=== PATIENT | female | born 1930 | race Caucasian/White ===

== ENCOUNTER 2017-08-29 19:44 | Observation (INO) ==
--- NOTE | 2017-08-29 20:01 | Emergency Department Note ---
Disposition Clinical Impression: Recurrent falls Laceration of head Qualifiers: Encounter type: initial encounter Location of open wound of head: scalp Foreign body presence: without foreign body Qualified Code(s): S01.01XA - Laceration without foreign body of scalp, initial encounter Closed wedge fracture of thoracic vertebra Qualifiers: Encounter type: initial encounter Thoracic vertebra fracture level: T4 Qualified Code(s): S22.040A - Wedge compression fracture of fourth thoracic vertebra, initial encounter for closed fracture Disposition: Admitted As Inpatient Condition: Fair Instructions: Fall Prevention for Older Adults (ED) Reasons to Return/Additional Instructions: Please follow-up with your primary care provider for continuation of your care. Return to the emergency department if you develop any worsening of your condition or if you develop new concerning symptoms. Return to primary care provider in 5-7 days for removal of her sutures. Referrals: Rudy Crowder DO [Primary Care Provider] - Forms: ED Satisfaction Letter Fall HPI - General Chief Complaint: ED Fall Stated Complaint: Fall/head injury Time Seen by Provider: 08/29/17 19:53 Source: patient Nursing Notes Reviewed: Yes Vital Signs Reviewed: Yes - History of Present Illness HPI Narrative: 87-year-old female presents to emergency department after a fall. Patient was at home, states that she had a mechanical fall. Patient hit her head is going to the floor. In her right hand and right knee as well. Denies any neck pain. States that she denies any chest pain, pressure, tightness. Denies any shortness of breath. Denies losing consciousness. States she remembers everything happens. As walker and cane at home. Was using cane. - Related Data Home Medications Medication Instructions Recorded Confirmed Alendronate Sodium [Fosamax] 70 mg PO QWEEK 08/29/17 08/29/17 Celecoxib [Celebrex] 200 mg PO DAILY 08/29/17 08/29/17 Clopidogrel [Plavix] 75 mg PO DAILY 08/29/17 08/29/17 Esomeprazole Magnesium [Nexium] 40 mg PO DAILY 08/29/17 08/29/17 Lisinopril [Zestril] 40 mg PO DAILY 08/29/17 08/29/17 Metoclopramide HCl 5 mg PO BID 08/29/17 08/29/17 Metoprolol Succinate [Toprol Xl] 50 mg PO DAILY 08/29/17 08/29/17 Sertraline [Zoloft] 100 mg PO DAILY 08/29/17 08/29/17 Simvastatin [Zocor] 20 mg PO HS 08/29/17 08/29/17 Sucralfate [Carafate] 20 ml PO BID 08/29/17 08/29/17 Tolterodine LA (24 HR) [Detrol LA] 4 mg PO DAILY 08/29/17 08/29/17 amLODIPine [Norvasc] 5 mg PO DAILY 08/29/17 08/29/17 Allergies Allergy/AdvReac Type Severity Reaction Status Date / Time pregabalin [From Lyrica] AdvReac See Verified 08/29/17 20:42 Comments All systems ED: reviewed and negative except as stated. Review of Systems: As Per HPI Constitutional: Denies: fever Cardiovascular: Denies: chest pain Respiratory: Denies: cough, dyspnea, wheezes Gastrointestinal: Denies: abdominal pain, nausea, vomiting Genitourinary: Denies: urgency, dysuria, frequency Musculoskeletal: Denies: back pain, neck pain Integumentary: Reports: other (Laceration of forehead) Neurological: Reports: headache. Denies: weakness, numbness, paresthesias, confusion Endocrine: Denies: fatigue Hematological/Lymphatic: Denies: easy bleeding Fall PMH - Past Medical History Medical history: Reports: coronary artery disease, GERD, hypertension, myocardial infarction Surgical history: Reports: appendectomy, breast surgery, cataract, cholecystectomy, hysterectomy, orthopedic, other Psychiatric history: Reports: no psych history - Social History Smoking Status: Never smoker Alcohol use: Reports: none Drug use: Reports: none Physical Exam - General Limitations: no limitations General appearance: alert, in no apparent distress - Head Head exam: other (2 inch laceration of the scalp on the right side. Galea is disrupted. There are various skin tears on the right side of the cheek.) - Eye Eye exam: Present: PERRL, EOMI. Absent: scleral icterus - ENT ENT exam: normal exam, normal oropharynx, mucous membranes moist, TM's normal bilaterally - Neck Neck exam: Present: trachea midline - Chest Chest inspection: Present: normal inspection, symmetric chest wall rise - Respiratory Respiratory exam: Present: normal lung sounds bilaterally. Absent: respiratory distress, accessory muscle use - Cardiovascular Cardiovascular exam: Present: normal rhythm, bradycardia, normal heart sounds - Abdominal Exam Abdominal exam: Present: soft, Non-Tender. Absent: distention, guarding, rebound - Extremities Exam Extremities exam: Present: other (Bruising on the right knee, abrasion on the right hand.) - Back Exam Back exam: Present: full ROM - Neurological Exam Neurological exam: Present: alert, oriented X3, CN II-XII intact - Psychiatric Psychiatric exam: Present: normal affect, normal mood Course Vital Signs Temperature 98.5 F 08/29/17 19:48 Pulse Rate 57 08/29/17 19:48 Respiratory Rate 18 08/29/17 19:48 Blood Pressure 93/79 08/29/17 19:48 O2 Sat by Pulse Oximetry 96 08/29/17 19:48 Temperature 98.5 F 08/29/17 19:48 Pulse Rate 57 08/29/17 19:48 Respiratory Rate 18 08/29/17 19:48 Blood Pressure 93/79 08/29/17 19:48 O2 Sat by Pulse Oximetry 96 08/29/17 19:48 Oxygen Delivery Oxygen Delivery Room Air Procedures - Laceration Laceration 1 Site: scalp Side (If applicable): right Size (cm): 5 Description: linear Depth: involves muscle layer Local Anesthetic: lidocaine 1%, with epi Amount of Anesthesia Used (mL): 6 Pre-repair: wound explored, irrigated extensively Skin layer closed with: nylon Size: 6-0 Number of sutures/emperatriz: 10 Technique: simple, interrupted Subcutaneous layer closed with: vicryl Size: 6-0 Number of sutures: 2 Technique: simple, interrupted Fall - [facility] Narrative Medical decision making narrative: 87-year-old female presents to the emergency department after falling and hitting her head. Patient has obvious laceration on the right side of the scalp. Patient is GCS 15. Neurologically intact. We will obtain CT of the head, face, neck and chest. There were no acute findings. CT of the face reveals nasal fracture. Patient does not report any nasal pain, she states that this happened after a previous fall. CT and x-ray of the chest reveals dilated esophagus, but this is nothing new. Patient also has a closed wedge fracture of her thoracic spine of indeterminate age. Upon palpation of patient's spine, she had no tenderness. I do not think this is new as patient clinically does not have any back pain. Patient is not anemic. She does not have any evidence of leukocytosis. Kidney function is within normal limits. EKG did not reveal any evidence of for Parkinson White syndrome, Brugada syndrome, hypertrophic cardiomyopathy, QT prolongation, or any other arrhythmia. Patient had a laceration that was 5 cm in length on her scalp. This was repaired. The galea structure was not intact as well. This was repaired using 6-0 Vicryl. Patient tolerated the procedure well. She was given analgesia here in the emergency department as well. Patient does not have anyone at home to help her after her fall tonight. Patient was not able to get up with anybody to stay home with her. At this time , I think it is only safe to keep the patient in the hospital overnight for observation as she has been falling multiple times in the past few months. There may be some need for consideration of placement in extended care facility. I echoed this with the hospitalist as he accepted the admission of the patient. Patient agreed with plan. Hemodynamically stable at time of admission with the hospital. Chest CT 08/29/17 00:00 IMPRESSION: There is a moderate anterior wedge compression fracture of T6 of indeterminate age. Clinical correlation is recommended. No definite evidence of an acute injury in the chest or upper abdomen. There is an unchanged dilated esophagus with stable postsurgical changes at the GE junction, perhaps an unwound fundoplication as previously suggested. Achalasia is not excluded. Clinical correlation is recommended. D/ / Dave Luna MD / Dave Luna MD Interpreting Provider: Dave Luna MD Cervical Spine CT 08/29/17 20:01 IMPRESSION: No acute abnormality of the cervical spine. Multilevel degenerative changes There appears to be gaseous distention of the esophagus in the superior aspect of chest extending to the neck D/ / Yohan Eller MD / Yohan Eller MD Interpreting Provider: Yohan Eller MD Chest X-Ray 08/29/17 20:01 IMPRESSION: Dilated esophagus. Otherwise, no acute abnormalities seen in the chest D/ / Yohan Eller MD / Yohan Eller MD Interpreting Provider: Yohan Eller MD Head CT 08/29/17 20:01 IMPRESSION: No acute intracranial abnormality. Scalp laceration in the right frontal region. D/ / Dave Luna MD / Dave Luna MD Interpreting Provider: Dave Luna MD Pelvis X-Ray 08/29/17 20:01 IMPRESSION: No acute osseous abnormality. D/ / 08/29/2017 21:57:14 Carson Dimas MD / marisol Interpreting Provider: Carson Dimas MD Hand X-Ray 08/29/17 20:02 IMPRESSION: No acute bony or joint abnormality. Severe osteoarthritic change D/ / Yohan Eller MD / Yohan Eller MD Interpreting Provider: Yohan Eller MD Knee X-Ray 08/29/17 20:03 IMPRESSION: 1. No acute osseous abnormality of the right knee. 2. Mild tricompartmental osteoarthritis. 3. 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 D/ / 08/29/2017 21:49:21 Carson Dimas MD / marisol Interpreting Provider: Carson Dimas MD Face CT 08/29/17 20:11 IMPRESSION: Nasal bone deformity/fracture of indeterminate age. Clinical correlation is recommended. No other facial bone fracture identified. Right frontal scalp laceration. D/ / Dave Luna MD / Dave Luna MD Interpreting Provider: Dave Luna MD Vital Signs Temperature 98.5 F 08/29/17 19:48 Pulse Rate 57 08/29/17 19:48 Respiratory Rate 18 08/29/17 19:48 Blood Pressure 93/79 08/29/17 19:48 O2 Sat by Pulse Oximetry 96 08/29/17 19:48 Temperature 98.5 F 08/29/17 19:48 Pulse Rate 57 08/29/17 19:48 Respiratory Rate 18 08/29/17 19:48 Blood Pressure 93/79 08/29/17 19:48 O2 Sat by Pulse Oximetry 96 08/29/17 19:48 Oxygen Delivery Oxygen Delivery Room Air - Lab Data Result diagrams: 08/29/17 20:05 08/29/17 20:05 Lab Results 08/29/17 08/29/17 Range/Units 20:05 20:05 WBC 11.1 (4.3-11.1) K/mcL RBC 4.12 (3.82-4.97) M/mcL Hgb 11.6 (11.5-15.4) g/dL Hct 36.0 (35.3-44.9) % MCV 87.4 (83.0-100.0) fL MCH 28.2 (28.0-33.3) pg MCHC 32.2 (31.6-35.5) g/dL RDW 14.3 (11.5-14.5) % Plt Count 94 L (140-400) K/mcL MPV 12.1 (9.4-12.4) fL Immature Gran % 0.4 (0-4) % Seg Neutrophils % 87.9 % Lymphocytes % 7.7 % Monocytes % 2.0 % Eosinophils % 1.8 % Basophils % 0.2 % Neutrophils # 9.8 H (1.6-8.9) K/mcL Lymphocytes # 0.9 (0.6-4.6) K/mcL Monocytes # 0.2 (0.0-1.3) K/mcL Eosinophils # 0.2 (0.0-0.6) K/mcL Basophils # 0.0 (0.0-0.2) K/mcL Platelet Estimate Decreased L (Normal) Poikilocytosis 1+ A (Not Present) Sodium 135 L (136-145) mEq/L Potassium 4.2 (3.5-5.1) mEq/L Chloride 107 (98-107) mEq/L Carbon Dioxide 19 L (23-29) mEq/L BUN 30 H (8-23) mg/dL Creatinine 1.16 (0.60-1.20) mg/dL Est GFR ( Amer) 53 L (> 60) Est GFR (Non-Af Amer) 44 L (> 60) BUN/Creatinine Ratio 26 (6-26) Glucose 113 H (70-105) mg/dL Calculated Osmolality 287 (280-300) Calcium 9.0 (8.6-10.3) mg/dL Troponin I < 0.03 (< 0.04) ng/mL TSH 6.987 H (0.340-5.600) mcIU/mL - Radiology Data Radiology results reviewed: Yes I reviewed the patient's radiology results. - EKG Data EKG attestation: Yes I reviewed and interpreted this EKG. EKG results narrative: 19:55 Ventricular rate 52 bpm, SD interval 205, QS spiritism 77 ms, QT 430 ms, QTC 413 ms, attacks deviation. Sinus bradycardia with a ventricular rate of 52 bpm. There are no ischemic ST changes noted on this electrocardiogram. No previous study to compare this to. No evidence of Lxzri-Opmzgqnwg-Ijuov syndrome, hypertrophic cardiomyopathy, QT prolongation.
[2017-08-29 20:29] LABS: Basophils % 0.2 %; Eosinophils # 0.2 K/mcL (0.0-0.6); Eosinophils % 1.8 %; Hemoglobin 11.6 g/dL (11.5-15.4); Immature Granulocytes % 0.4 % (0-4); Lymphocytes # 0.9 K/mcL (0.6-4.6); Lymphocytes % 7.7 %; Mean Corpuscular HGB Conc 32.2 g/dL (31.6-35.5); Mean Corpuscular Hemoglobin 28.2 pg (28.0-33.3); Mean Corpuscular Volume 87.4 fL (83.0-100.0); Mean Platelet Volume 12.1 fL (9.4-12.4); Monocytes # 0.2 K/mcL (0.0-1.3); Neutrophils # 9.8 K/mcL (1.6-8.9); Red Blood Count 4.12 M/mcL (3.82-4.97); Red Cell Distribution Width 14.3 % (11.5-14.5); Segmented Neutrophils % 87.9 %
[2017-08-29 20:31] LABS: Platelet Count 94 K/mcL (140-400)
[2017-08-29 20:44] LABS: BUN/Creatinine Ratio 26 (6-26); Blood Urea Nitrogen 30 mg/dL (8-23); Carbon Dioxide 19 mEq/L (23-29); Chloride 107 mEq/L (98-107); Glucose 113 mg/dL (70-105); Osmolality,Calculated 287 (280-300); Potassium 4.2 mEq/L (3.5-5.1); Sodium 135 mEq/L (136-145); eGFR For African Americans 53 (> 60); eGFR For Non-African Americans 44 (> 60)
[2017-08-29 20:45] LABS: Troponin I < 0.03 ng/mL (< 0.04)
[2017-08-29 20:49] LABS: Platelet Estimate Decreased (Normal); Poikilocytosis 1+ (Not Present)
[2017-08-29 20:58] LABS: Thyroid Stimulating Hormone 6.987 mcIU/mL (0.340-5.600)
[2017-08-29] MEDS ORDERED: Lidocaine 1% 20 ML MDV ID ONE (21:54)
[2017-08-29] MEDS ORDERED: *HR* FentaNYL (PF) 100 MCG/2 ML VIAL IVP ONE (22:06)
--- NOTE | 2017-08-29 22:49 | Emergency Department Note ---
Disposition Clinical Impression: Recurrent falls Laceration of head Qualifiers: Encounter type: initial encounter Location of open wound of head: scalp Foreign body presence: without foreign body Qualified Code(s): S01.01XA - Laceration without foreign body of scalp, initial encounter Closed wedge fracture of thoracic vertebra Qualifiers: Encounter type: initial encounter Thoracic vertebra fracture level: T4 Qualified Code(s): S22.040A - Wedge compression fracture of fourth thoracic vertebra, initial encounter for closed fracture Disposition: Admitted As Inpatient Condition: Fair Instructions: Fall Prevention for Older Adults (ED) Reasons to Return/Additional Instructions: Please follow-up with your primary care provider for continuation of your care. Return to the emergency department if you develop any worsening of your condition or if you develop new concerning symptoms. Return to primary care provider in 5-7 days for removal of her sutures. Referrals: Rudy Crowder DO [Primary Care Provider] - Forms: ED Satisfaction Letter Time of Disposition: 22:50 Fall HPI - General Chief Complaint: ED Fall Stated Complaint: Fall/head injury Time Seen by Provider: 08/29/17 19:53 Source: patient Mode of arrival: ambulatory Limitations: no limitations Nursing Notes Reviewed: Yes Vital Signs Reviewed: Yes - Related Data Home Medications Medication Instructions Recorded Confirmed Alendronate Sodium [Fosamax] 70 mg PO QWEEK 08/29/17 08/29/17 Celecoxib [Celebrex] 200 mg PO DAILY 08/29/17 08/29/17 Clopidogrel [Plavix] 75 mg PO DAILY 08/29/17 08/29/17 Esomeprazole Magnesium [Nexium] 40 mg PO DAILY 08/29/17 08/29/17 Lisinopril [Zestril] 40 mg PO DAILY 08/29/17 08/29/17 Metoclopramide HCl 5 mg PO BID 08/29/17 08/29/17 Metoprolol Succinate [Toprol Xl] 50 mg PO DAILY 08/29/17 08/29/17 Sertraline [Zoloft] 100 mg PO DAILY 08/29/17 08/29/17 Simvastatin [Zocor] 20 mg PO HS 08/29/17 08/29/17 Sucralfate [Carafate] 20 ml PO BID 08/29/17 08/29/17 Tolterodine LA (24 HR) [Detrol LA] 4 mg PO DAILY 08/29/17 08/29/17 amLODIPine [Norvasc] 5 mg PO DAILY 08/29/17 08/29/17 Allergies Allergy/AdvReac Type Severity Reaction Status Date / Time pregabalin [From Lyrica] AdvReac See Verified 08/29/17 20:42 Comments Fall PMH - Past Medical History Medical history: Reports: coronary artery disease, GERD, hypertension, myocardial infarction Surgical history: Reports: appendectomy, breast surgery, cataract, cholecystectomy, hysterectomy, orthopedic, other Psychiatric history: Reports: no psych history - Social History Smoking Status: Never smoker Alcohol use: Reports: none Drug use: Reports: none Physical Exam - General Limitations: no limitations General appearance: alert, in no apparent distress Course Vital Signs Temperature 98.5 F 08/29/17 19:48 Pulse Rate 57 08/29/17 19:48 Respiratory Rate 18 08/29/17 19:48 Blood Pressure 93/79 08/29/17 19:48 O2 Sat by Pulse Oximetry 96 08/29/17 19:48 Temperature 98.5 F 08/29/17 19:48 Pulse Rate 57 08/29/17 19:48 Respiratory Rate 18 08/29/17 19:48 Blood Pressure 93/79 08/29/17 19:48 O2 Sat by Pulse Oximetry 96 08/29/17 19:48 Oxygen Delivery Oxygen Delivery Room Air Fall - Lab Data Result diagrams: 08/29/17 20:05 08/29/17 20:05 Lab Results 08/29/17 08/29/17 Range/Units 20:05 20:05 WBC 11.1 (4.3-11.1) K/mcL RBC 4.12 (3.82-4.97) M/mcL Hgb 11.6 (11.5-15.4) g/dL Hct 36.0 (35.3-44.9) % MCV 87.4 (83.0-100.0) fL MCH 28.2 (28.0-33.3) pg MCHC 32.2 (31.6-35.5) g/dL RDW 14.3 (11.5-14.5) % Plt Count 94 L (140-400) K/mcL MPV 12.1 (9.4-12.4) fL Immature Gran % 0.4 (0-4) % Seg Neutrophils % 87.9 % Lymphocytes % 7.7 % Monocytes % 2.0 % Eosinophils % 1.8 % Basophils % 0.2 % Neutrophils # 9.8 H (1.6-8.9) K/mcL Lymphocytes # 0.9 (0.6-4.6) K/mcL Monocytes # 0.2 (0.0-1.3) K/mcL Eosinophils # 0.2 (0.0-0.6) K/mcL Basophils # 0.0 (0.0-0.2) K/mcL Platelet Estimate Decreased L (Normal) Poikilocytosis 1+ A (Not Present) Sodium 135 L (136-145) mEq/L Potassium 4.2 (3.5-5.1) mEq/L Chloride 107 (98-107) mEq/L Carbon Dioxide 19 L (23-29) mEq/L BUN 30 H (8-23) mg/dL Creatinine 1.16 (0.60-1.20) mg/dL Est GFR ( Amer) 53 L (> 60) Est GFR (Non-Af Amer) 44 L (> 60) BUN/Creatinine Ratio 26 (6-26) Glucose 113 H (70-105) mg/dL Calculated Osmolality 287 (280-300) Calcium 9.0 (8.6-10.3) mg/dL Troponin I < 0.03 (< 0.04) ng/mL TSH 6.987 H (0.340-5.600) mcIU/mL Attestation Statement - Attestation Attestation: I, Khadar Fairbanks, examined this patient and my medical decision-making was reviewed with the ELECTRONIC SECURITY SPECIALIST/PA/Advanced Practice Nurse/Resident Physician. I agree with the documented findings, disposition and treatment plan as described except to the extent set forth below. 87-year-old female presents emergency Department with concerns of fall with head injury. Patient has laceration to the right forehead and right face. Patient states she was walking with her cane when she is supposed be using her walker. She lost her balance and started falling to the ground. She denies loss of consciousness to me. She states she has a long history of similar falls in the past. She denies fever, chills, nausea, vomiting, chest pain, shortness of breath, abdominal pain. No other recent changes in medications. Patient denies significant pain in her neck. CT of the head and neck were negative for acute acute intracranial hemorrhage, there is no fractures other than an indeterminate age nasal bone fracture. CT of the chest showed an indeterminate age wedge fracture of T6. Patient does not have back pain at that site. It also showed a dilated distal esophagus, patient denies difficulty with swallowing. Patient was updated on her CT results. Laceration was repaired by the resident with my supervision. Patient has a history of multiple recent falls. We will unable to obtain somebody to stay with the patient tonight to help her get around the house. Patient lives alone. Patient feels that she could fall if she was sent home. Patient will be admitted for possible placement to the detention and for further care and evaluation.
[2017-08-30 00:36] LABS: Bilirubin,Urine Small (Negative); Blood,Urine Moderate (Negative); Clarity,Urine Turbid (Clear); Color,Urine Yellow (Yellow); Glucose,Urine (UA) Normal (Normal); Ketones,Urine Negative (Negative); Leukocyte Esterase,Urine Large (Negative); Nitrite,Urine Negative (Negative); Protein,Urine Negative (Neg-Trace); Specific Gravity,Urine 1.023 (1.010-1.025); Urobilinogen,Urine Normal (Normal)
[2017-08-30 00:39] LABS: Bacteria,Urine Few per hpf (None-Few); Squamous Epithelial Cell,Urine Many per lpf (None-Few); WBC,Urine 30-50 per hpf (0-3)
[2017-08-30 00:55] LABS: Hyaline Casts,Urine Many per lpf (None-Few)
--- NOTE | 2017-08-30 02:22 | Internal Med History&Physical ---
Date of Encounter: 08/30/17 Time of Encounter: 01:40 Internal Medicine - H&P: HPI Chief complaint: FAll of with head injury Admitted From: Emergency Dept Plans for Post Hospital Care: Transfer Residential Facility History of present illness: Ms. Nunez is a 87 year old female patient with a history of coronary artery disease status post stent, hypertension, gastroesophageal reflux disease who presented to the ER after fall with resulting head injury. She has been having multiple episodes of falls at home related to episodes of vertigo. She does not take anything for this. She had been feeling weak this morning but appears to have a mechanical fall with head injury when she landed on the floor. She also hit her right knee and hand as well. She normally uses a walker and cane at home. She lives alone. She did not lose any consciousness. She occasionally gets dizzy but denies any palpitations. No focal weakness or numbness. Past Med Surg Social Fam HX - Past Medical History Medical history: coronary artery disease, GERD, hypertension, myocardial infarction Additional medical history: hiatel hernia - acute esophagitis Psychiatric history: no psych history - Past Surgical History Surgical History: appendectomy, breast surgery, cataract, cholecystectomy, hysterectomy, orthopedic, other Additional surgical history: heart stent - egd - ctr x 3, cole hand surgery, nose surgery, esophageal surgery - Social History Smoking Status: Never smoker Smokeless Tobacco Status: No Alcohol use: none Drug use: none - Additional Family History Additional family history: Family history reviewed and found to be noncontributory at this time. Internal Medicine - H&P: Meds Alendronate Sodium [Fosamax] 70 mg PO QWEEK 08/29/17 [History] Celecoxib [Celebrex] 200 mg PO DAILY 08/29/17 [History] Clopidogrel [Plavix] 75 mg PO DAILY 08/29/17 [History] Esomeprazole Magnesium [Nexium] 40 mg PO DAILY 08/29/17 [History] Lisinopril [Zestril] 40 mg PO DAILY 08/29/17 [History] Metoclopramide HCl 5 mg PO BID 08/29/17 [History] Metoprolol Succinate [Toprol Xl] 50 mg PO DAILY 08/29/17 [History] Sertraline [Zoloft] 100 mg PO DAILY 08/29/17 [History] Simvastatin [Zocor] 20 mg PO HS 08/29/17 [History] Sucralfate [Carafate] 20 ml PO BID 08/29/17 [History] Tolterodine LA (24 HR) [Detrol LA] 4 mg PO DAILY 08/29/17 [History] amLODIPine [Norvasc] 5 mg PO DAILY 08/29/17 [History] 3 Allergy/AdvReac Type Severity Reaction Status Date / Time pregabalin [From Lyrica] AdvReac See Verified 08/29/17 20:42 Comments All Systems PM: A 10-system review of systems was performed and is negative for pertinent findings except as documented above in the HPI. - Constitutional Constitutional: falls, no chills, no fever(s), no night sweats - EENT Eyes: no change in vision, no discharge, no pain, no photophobia Ears: no ear discharge, no ear pain, no tinnitus Nose, mouth and throat: no dysphagia, no nasal discharge, no neck pain, no sore throat - Cardiovascular Cardiovascular ROS IM: no chest pain, no diaphoresis, no dyspnea, no lightheadedness, no palpitations, no syncope - Respiratory Respiratory: no cough, no dyspnea, no wheezing, no excessive phlegm production - Gastrointestinal Gastrointestinal: no abdominal pain, no diarrhea, no hematemesis, no hematochezia, no melena, no nausea, no vomiting - Genitourinary Genitourinary: no change in urinary stream, no dysuria, no flank pain, no hematuria - Musculoskeletal Musculoskeletal ROS IM: no numbness, no tingling - Integumentary Integumentary IM: no rash, no unusual bruising - Neurological Neurological ROS: frequent falls, no confusion, no convulsions, no focal weakness, no numbness, no tingling, no tremor(s) - Hematologic/Lymphatic Hematologic/Lymphatic: no easy bruising - Constitutional Vitals: Temp Pulse Resp BP Pulse Ox 98.3 F 55 16 104/60 95 08/30/17 02:06 08/30/17 02:06 08/30/17 02:06 08/30/17 02:06 08/30/17 02:06 General appearance: Present: cooperative, A&O X 3, answers questions appropriately - Head Additional comments: Sutures placed on right frontal scalp region wound - Respiratory Respiratory exam: Present: CTAB. Absent: accessory muscle use, rales, rhonchi, wheezes - Cardiovascular Cardiovascular exam: Present: RRR, +S1, +S2. Absent: diastolic murmur, gallop, rubs, systolic murmur - GI/Abdominal GI/Abdominal exam: Present: normal bowel sounds, soft, no peritoneal signs. Absent: distended, tenderness - Extremities Exam Extremities exam: Present: warm, radial pulses palpable and symmetrical. Absent : calf tenderness, cyanotic, pedal edema - Neurological Exam Neurological exam: Present: CN II-XII intact, oriented X3, no focal deficits. Absent: facial droop, speech deficit - Skin Skin exam: Present: dry, intact Additional comments: Multiple ecchymoses noted on her face, extremities Internal Med - H&P Results - Labs CBC & Chem 7: 08/29/17 20:05 08/29/17 20:05 - Impressions Impressions Chest CT 08/29/17 00:00 IMPRESSION: There is a moderate anterior wedge compression fracture of T6 of indeterminate age. Clinical correlation is recommended. No definite evidence of an acute injury in the chest or upper abdomen. There is an unchanged dilated esophagus with stable postsurgical changes at the GE junction, perhaps an unwound fundoplication as previously suggested. Achalasia is not excluded. Clinical correlation is recommended. D/ / Dave Luna MD / Dave Luna MD Interpreting Provider: Dave Luna MD Cervical Spine CT 08/29/17 20:01 IMPRESSION: No acute abnormality of the cervical spine. Multilevel degenerative changes There appears to be gaseous distention of the esophagus in the superior aspect of chest extending to the neck D/ / Yohan Eller MD / Yohan Eller MD Interpreting Provider: Yohan Eller MD Chest X-Ray 08/29/17 20:01 IMPRESSION: Dilated esophagus. Otherwise, no acute abnormalities seen in the chest D/ / Yohan Eller MD / Yohan Eller MD Interpreting Provider: Yohan Eller MD Head CT 08/29/17 20:01 IMPRESSION: No acute intracranial abnormality. Scalp laceration in the right frontal region. D/ / Dave Luna MD / Dave Luna MD Interpreting Provider: Dave Luna MD Pelvis X-Ray 08/29/17 20:01 IMPRESSION: No acute osseous abnormality. D/ / 08/29/2017 21:57:14 Carson Dimas MD / marisol Interpreting Provider: Carson Dimas MD Hand X-Ray 08/29/17 20:02 IMPRESSION: No acute bony or joint abnormality. Severe osteoarthritic change D/ / Yohan Eller MD / Yohan Eller MD Interpreting Provider: Yohan Eller MD Knee X-Ray 08/29/17 20:03 IMPRESSION: 1. No acute osseous abnormality of the right knee. 2. Mild tricompartmental osteoarthritis. 3. 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 D/ / 08/29/2017 21:49:21 Carson Dimas MD / marisol Interpreting Provider: Carson Dimas MD Face CT 08/29/17 20:11 IMPRESSION: Nasal bone deformity/fracture of indeterminate age. Clinical correlation is recommended. No other facial bone fracture identified. Right frontal scalp laceration. D/ / Dave Luna MD / Dave Luna MD Interpreting Provider: Dave Luna MD - Assessment and plan (1) Recurrent falls Current Visit: Yes Status: Acute Assessment and plan: Patient with recurrent falls. No clear acute fractures. She does have moderate anterior wedge compression fracture of T6 of indeterminate age and also a nasal bone fracture of indeterminate age. Patient lives alone. As such she is unsafe to be discharged home at this time. Therefore we will bring her in for observation and oncology social work, PT OT evaluation. Fall precautions. Check orthostatic blood pressures. Gentle IV hydration. (2) Laceration of head Current Visit: Yes Status: Acute Assessment and plan: Due to fall. Has been sutured in the ER. Continue local wound care Qualifiers: Encounter type: initial encounter Location of open wound of head: scalp Foreign body presence: without foreign body Qualified Code(s): S01.01XA - Laceration without foreign body of scalp, initial encounter (3) Coronary artery disease Current Visit: Yes Status: Chronic Assessment and plan: Patient takes Plavix at home. CT scan of the head does not show any acute bleed. Will continue Plavix for now. Qualifiers: Coronary Disease-Associated Artery/Lesion type: [place] artery [place] vs. transplanted heart: [place] heart Associated angina: without angina Qualified Code(s): I25.10 - Atherosclerotic heart disease of [place] coronary artery without angina pectoris (4) Essential hypertension Current Visit: Yes Status: Chronic Assessment and plan: monitor blood pressure. Hold antihypertensives currently because blood pressure appears to be on the lower side and patient may have orthostatic hypotension. We will reevaluate in the morning. - Time Spent With Patient Total time spent is greater than 50% in coordination of care (as documented) at patient's floor/unit and/or counseling patient:
[2017-08-30] MEDS ORDERED: Naloxone 0.4 MG/ML INJ IVP PRN (02:27)
[2017-08-30] MEDS ORDERED: Ringers Solution, Lactated 1,000 ML IVC SCH ×2 (02:30→03:00)
[2017-08-30 05:03] LABS: Basophils % 0.3 %; Hemoglobin 10.8 g/dL (11.5-15.4)
[2017-08-30 05:05] LABS: Eosinophils # 0.2 K/mcL (0.0-0.6); Eosinophils % 2.6 %; Hematocrit 32.5 % (35.3-44.9); Immature Granulocytes % 0.6 % (0-4); Immature Platelets 8.6 % (1.1-6.1); Lymphocytes # 1.5 K/mcL (0.6-4.6); Lymphocytes % 21.2 %; Mean Corpuscular HGB Conc 33.2 g/dL (31.6-35.5); Mean Corpuscular Hemoglobin 29.7 pg (28.0-33.3); Mean Corpuscular Volume 89.3 fL (83.0-100.0); Mean Platelet Volume 12.6 fL (9.4-12.4); Monocytes # 0.6 K/mcL (0.0-1.3); Monocytes % 8.2 %; Neutrophils # 4.8 K/mcL (1.6-8.9); Nucleated Red Blood Cells 0.3 /100 WBC (0); Platelet Count 71 K/mcL (140-400); Red Blood Count 3.64 M/mcL (3.82-4.97); Red Cell Distribution Width 14.2 % (11.5-14.5); Segmented Neutrophils % 67.1 %
[2017-08-30 05:27] LABS: Calcium 9.1 mg/dL (8.6-10.3); Potassium 4.2 mEq/L (3.5-5.1)
[2017-08-30] MEDS: Celecoxib 200 MG CAPSULE PO SCH (09:16)
[2017-08-30] MEDS: Tolterodine LA (24 HR) 4 MG CAP.ER.24H PO SCH (09:18)
--- NOTE | 2017-08-30 12:38 | Event Note ---
Date of Encounter: 08/30/17 Time of Encounter: 12:35 Patient was seen and examined earlier this a.m. by hospitalist. I did see the patient at bedside she is alert and appropriate and following simple commands. She does admit to frequent falls and lives alone. She does use a cane or walker and admits that majority of her falls occur when she is using her cane she feels unsteady and attributes this recent fall to tripping on her feet. Awaiting PT OT and social service recommendations. We will recheck lab work in the a.m. Continue with fall precautions
--- NOTE | 2017-08-30 20:53 | Electrocardiograph Report ---
[address] [place], [place] [address] Test Date: 2017-08-29 Pat Name: Brittany Nunez Department: 103 Room: 3B21 Gender: F Bench Inspector: LRS : 1930 Requested By: Justo Ariza Order Number: [id number] Reading MD: Heron Shelton Measurements Intervals [place] Rate: 53 P: 20 AL: 205 QRS: -2 QRSD: 77 T: 43 QT: 430 QTc: 413 Interpretive Statements SINUS BRADYCARDIA BASELINE ARTIFACT Electronically Signed On 08-30-2017 20:51:47 EDT by Heron Shelton
[2017-08-31 07:25] LABS: Basophils % 0.2 %; Hemoglobin 10.9 g/dL (11.5-15.4)
[2017-08-31 07:27] LABS: Eosinophils # 0.1 K/mcL (0.0-0.6); Eosinophils % 2.9 %; Immature Granulocytes % 0.6 % (0-4); Immature Platelets 7.9 % (1.1-6.1); Lymphocytes % 21.1 %; Mean Corpuscular Hemoglobin 29.2 pg (28.0-33.3); Mean Corpuscular Volume 88.5 fL (83.0-100.0); Mean Platelet Volume 12.1 fL (9.4-12.4); Monocytes # 0.4 K/mcL (0.0-1.3); Monocytes % 7.6 %; Neutrophils # 3.3 K/mcL (1.6-8.9); Red Blood Count 3.73 M/mcL (3.82-4.97); Red Cell Distribution Width 14.2 % (11.5-14.5); Segmented Neutrophils % 67.6 %
[2017-08-31 07:42] LABS: BUN/Creatinine Ratio 20 (6-26); Blood Urea Nitrogen 16 mg/dL (8-23); Calcium 9.2 mg/dL (8.6-10.3); Carbon Dioxide 23 mEq/L (23-29); Chloride 112 mEq/L (98-107); Glucose 89 mg/dL (70-105); Osmolality,Calculated 295 (280-300); Potassium 3.6 mEq/L (3.5-5.1); Sodium 142 mEq/L (136-145); eGFR For African Americans > 60 (> 60); eGFR For Non-African Americans > 60 (> 60)
[2017-08-31 08:11] LABS: Platelet Count 79 K/mcL (140-400)
[2017-08-31] MEDS: Celecoxib 200 MG CAPSULE PO SCH (09:24)
[2017-08-31] MEDS: Tolterodine LA (24 HR) 4 MG CAP.ER.24H PO SCH (09:24)
--- NOTE | 2017-08-31 19:54 | Internal Med Progress Note ---
Date of Encounter: 08/31/17 Time of Encounter: 11:10 - Assessment and plan (1) Laceration of head Current Visit: Yes Status: Acute Assessment and plan: Lac to right forehead. Sutures intact, no bleeding. Monitor wound for bleeding or signs of infection. Sutures out in 7-10 days. Qualifiers: Encounter type: initial encounter Location of open wound of head: scalp Foreign body presence: without foreign body Qualified Code(s): S01.01XA - Laceration without foreign body of scalp, initial encounter (2) Recurrent falls Current Visit: Yes Status: Chronic Assessment and plan: Pt and daughter state that pt has had increasing falls recently. Patient states that she is unsure of why she is falling, though she does say that she has had some dizziness. Echocardiogram and carotid Dopplers, orthostatics are ordered. Monitor for safety and falls Continue telemetry (3) Coronary artery disease Current Visit: Yes Status: Chronic Assessment and plan: Patient denies chest pain. Continue Plavix and statin. Qualifiers: Coronary Disease-Associated Artery/Lesion type: [place] artery [place] vs. transplanted heart: [place] heart Associated angina: without angina Qualified Code(s): I25.10 - Atherosclerotic heart disease of [place] coronary artery without angina pectoris (4) Essential hypertension Current Visit: Yes Status: Chronic Assessment and plan: Chronic. Mild height for tension noted today. Home medications have been restarted, continue to monitor. Hydralazine 10 mg IV when necessary. - Time Spent With Patient Total time spent is greater than 50% in coordination of care (as documented) at patient's floor/unit and/or counseling patient: less than 15 minutes - Subjective Interval history: Patient was seen and assessed the bedside at 11:10 AM. Daughter was at bedside. All questions answered, both daughter and patient aware of plan of care. Patient denies headache, nausea, vomiting, diarrhea. She reports intermittent dizziness in the past, is unsure if this is what is causing her falls. They are agreeable to staying for completing workup for vertigo. - Constitutional Vitals: Temp Pulse Resp BP Pulse Ox 98.7 F 66 16 187/70 91 08/31/17 19:39 08/31/17 19:39 08/31/17 19:39 08/31/17 19:39 08/31/17 19:39 General appearance: Present: cooperative, A&O X 3, pleasant, no acute distress, answers questions appropriately - Head Head exam: Present: atraumatic, normal inspection, normocephalic - Eye Eye exam: Present: normal appearance, periorbital swelling, conjuntiva pink, sclera anicteric. Absent: nystagmus - Neck Neck exam general surgery: Present: tenderness, supple, trachea midline. Absent : lymphadenopathy - Respiratory Respiratory exam: Present: CTAB. Absent: accessory muscle use, chest wall tenderness, rales, respiratory distress, rhonchi, wheezes - Cardiovascular Cardiovascular exam: Present: RRR, +S1, +S2. Absent: diastolic murmur, gallop, rubs, systolic murmur - GI/Abdominal GI/Abdominal exam: Present: normal bowel sounds, soft. Absent: distended, hepatomegaly, tenderness - Extremities Exam Extremities exam: Present: normal capillary refill, normal inspection, warm, radial pulses palpable and symmetrical. Absent: calf tenderness, cyanotic, pedal edema - Neurological Exam Neurological exam: Present: alert, oriented X3, no focal deficits. Absent: altered, facial droop, speech deficit - Skin Skin exam: Present: dry, intact, normal color, warm. Absent: rash Internal Medicine: Result - Labs CBC & Chem 7: 08/31/17 07:03 08/31/17 07:03 Labs: Short CBC 08/31/17 Range/Units 07:03 WBC 4.9 (4.3-11.1) K/mcL Hgb 10.9 L (11.5-15.4) g/dL Hct 33.0 L (35.3-44.9) % Plt Count 79 L (140-400) K/mcL Neutrophils # 3.3 (1.6-8.9) K/mcL BMP 08/31/17 07:03 Sodium 142 Potassium 3.6 Chloride 112 H Carbon Dioxide 23 BUN 16 Creatinine 0.80 Glucose 89 Calcium 9.2 - VTE Documentation of Mechanical Device: Intermittent pneumatic compression device Consult Discharge Plan - Plan Referrals: Rudy Crowder DO [Primary Care Provider] -
[2017-09-01 02:17] LABS: Basophils % 0.2 %; Eosinophils % 3.9 %; Immature Granulocytes % 0.7 % (0-4)
[2017-09-01 02:19] LABS: Eosinophils # 0.2 K/mcL (0.0-0.6); Hematocrit 38.5 % (35.3-44.9); Hemoglobin 12.2 g/dL (11.5-15.4); Immature Platelets 7.3 % (1.1-6.1); Lymphocytes % 21.7 %; Mean Corpuscular HGB Conc 31.7 g/dL (31.6-35.5); Mean Corpuscular Hemoglobin 28.2 pg (28.0-33.3); Mean Corpuscular Volume 89.1 fL (83.0-100.0); Mean Platelet Volume 12.4 fL (9.4-12.4); Monocytes # 0.3 K/mcL (0.0-1.3); Monocytes % 7.1 %; Neutrophils # 2.9 K/mcL (1.6-8.9); Red Blood Count 4.32 M/mcL (3.82-4.97); Red Cell Distribution Width 14.1 % (11.5-14.5); Segmented Neutrophils % 66.4 %
[2017-09-01 02:23] LABS: Platelet Count 75 K/mcL (140-400)
[2017-09-01 02:30] LABS: BUN/Creatinine Ratio 17 (6-26); Blood Urea Nitrogen 14 mg/dL (8-23); Calcium 9.7 mg/dL (8.6-10.3); Carbon Dioxide 27 mEq/L (23-29); Chloride 107 mEq/L (98-107); Glucose 100 mg/dL (70-105); Osmolality,Calculated 297 (280-300); Potassium 3.4 mEq/L (3.5-5.1); Sodium 143 mEq/L (136-145); eGFR For African Americans > 60 (> 60); eGFR For Non-African Americans > 60 (> 60)
[2017-09-01] MEDS: Celecoxib 200 MG CAPSULE PO SCH (08:00)
[2017-09-01] MEDS: Tolterodine LA (24 HR) 4 MG CAP.ER.24H PO SCH (08:17)
[2017-09-01] MEDS ORDERED: Lisinopril 20 MG TABLET PO SCH (09:00)
[2017-09-01] MEDS ORDERED: amLODIPine 5 MG TABLET PO SCH (09:00)
[2017-09-01] MEDS ORDERED: Metoprolol XL (24 HR) Succ 50 MG TAB.ER.24H PO SCH (09:00)
--- NOTE | 2017-09-01 14:48 | Discharge Summary ---
- NOTES TO OUTPATIENT PROVIDER Notes to Outpatient Provider: Pt was admitted for dizziness and falls. Echo shows LVEF 65%, mild valvular dysfunction, normal wall motion. Non-stenotic plaque in bilateral carotids. Patient denies any palpitations or shortness of breath at time of falls. She denies loss of consciousness. He states that she is not sure why she falls. Family reports that she is not always consistent with using her cane and PT/OT have recommended outpatient therapy for balance and strength. Orders not resulted at time of discharge: Pending orders 08/31/17 00:22 Culture,Urine [RM] Routine 09/02/17 04:00 CBC [Complete Blood Count] [HEME] AM 0400 Chem 7 [Basic Metabolic Panel] AM 0400 Date of Encounter: 09/01/17 Time of Encounter: 11:05 - Discharge Diagnosis (1) Laceration of head Priority: Secondary Status: Acute Assessment and Plan: Lac to right forehead. Sutures intact, no bleeding or drainage. Sutures out in 7-10 days. Qualifiers: Encounter type: initial encounter Location of open wound of head: scalp Foreign body presence: without foreign body Qualified Code(s): S01.01XA - Laceration without foreign body of scalp, initial encounter (2) Recurrent falls Priority: Primary Status: Chronic Assessment and Plan: Pt and daughter state that pt has had increasing falls recently. Patient states that she is unsure of why she is falling, though she does say that she has had some dizziness. She denies palpitations, vision changes, chest pain, Echocardiogram shows LVEF of 65% with mild LV DD no evidence of PFO, mild MR, mild TR, normal wall motion. Bilateral carotids showed nonstenotic plaque. Unclear etiology for dizziness that patient states sometimes prompts falls, though not every fall. She reports mechanical falls, as well. Patient has been evaluated by physical therapy and occupational therapy, they recommend outpatient PT for strengthening and balance. I contacted patient's primary care office and left a voicemail not identifying the patient or any information, with a number to call me. We will request that they order physical therapy. Family is active in patient's life and live close by, patient and family both report that patient is very capable of caring for herself at home, they do want her to have physical therapy. Pt will be discharged to home with outpatient PT/OT Scott 12.5mg po TID prn dizziness #30 (3) Coronary artery disease Priority: Secondary Status: Chronic Assessment and Plan: Patient denies chest pain. Continue Plavix and statin. Qualifiers: Coronary Disease-Associated Artery/Lesion type: [place] artery [place] vs. transplanted heart: [place] heart Associated angina: without angina Qualified Code(s): I25.10 - Atherosclerotic heart disease of [place] coronary artery without angina pectoris (4) Essential hypertension Priority: Secondary Status: Chronic Assessment and Plan: Chronic. Mild HTN noted, slightly above goal, will not adjust medications at this time. Home medications have been restarted, continue to monitor. Hydralazine 10 mg IV when necessary. Hospital course: Ms. Nunez is a 87 year old female with past medical history of hypertension, coronary artery disease. Pt was admitted for falls at home with laceration to right forehead. CT head negative for any acute intracranial abnormality. Son noted on chest CT was a moderate anterior wedge compression fracture of T6 of indeterminate age. Patient is asymptomatic does not complain of back pain. There is no tenderness. No bruising or lacerations. Patient reports at times she has some intermittent dizziness that may cause her falls. Patient has denied dizziness since being here. She also has a walker at home that she is not consistent in using. Patient echocardiogram that showed an LVEF of 65%, mild LV DD, no evidence of PFO, mild MR, mild TR. Bilateral carotids have nonstenotic plaque throughout. Patient has been asymptomatic without dizziness or falls and physical therapy has identified no acute needs since she has been hospitalized. They do recommend outpatient therapy for balance and strength. I attempted to reach Mrs. Nunez's primary care office and left a message with no patient details stating that I would like to speak with them so they can order physical therapy. I recommend that she follow closely with primary care for continued evaluation, use her walker everywhere she goes, and change position slowly. She was given a prescription for meclizine 12.5 mg by mouth 3 times a day as needed for dizziness. Recommend she increase her fluid intake and if she continues to have problems, follow up with primary care and perhaps have an ENT consultation for vestibular rehabilitation. Patient's labs and vitals are stable and within normal limits. She is appropriate and stable for discharge. Family lives close and is active in patient's life, and states that patient is fine to go home. Discharge discussed with: patient, family - Time Spent with Patient Total time spent providing and/or coordinating discharge services: Less than 30 minutes - Discharge Medications Prescriptions: Meclizine [Antivert] 12.5 mg PO TID PRN #30 tablet PRN Reason: Dizziness Home Medications: Alendronate Sodium [Fosamax] 70 mg PO QWEEK 08/29/17 [History] Celecoxib [Celebrex] 200 mg PO DAILY 08/29/17 [History] Clopidogrel [Plavix] 75 mg PO DAILY 08/29/17 [History] Esomeprazole Magnesium [Nexium] 40 mg PO DAILY 08/29/17 [History] Lisinopril [Zestril] 40 mg PO DAILY 08/29/17 [History] Metoclopramide HCl 5 mg PO BID 08/29/17 [History] Metoprolol Succinate [Toprol Xl] 50 mg PO DAILY 08/29/17 [History] Sertraline [Zoloft] 100 mg PO DAILY 08/29/17 [History] Simvastatin [Zocor] 20 mg PO HS 08/29/17 [History] Sucralfate [Carafate] 20 ml PO BID 08/29/17 [History] Tolterodine LA (24 HR) [Detrol LA] 4 mg PO DAILY 08/29/17 [History] amLODIPine [Norvasc] 5 mg PO DAILY 08/29/17 [History] Meclizine [Antivert] 12.5 mg PO TID PRN #30 tablet 09/01/17 [Rx] Allergies/Adverse Reactions: 3 Allergy/AdvReac Type Severity Reaction Status Date / Time pregabalin [From Lyrica] AdvReac See Verified 08/29/17 20:42 Comments Date of admission: 08/30/17 01:54 Primary care physician: Rudy Reyes Colopy Consults: 08/30/17 02:28 Consult to Third Grade Teacher [CONS] Routine Reason for SW Consult: Discharge planning Discharging clinician: Connie Love Anticipated date of discharge: 09/01/17 - Constitutional Vitals: Temp Pulse Resp BP Pulse Ox 98.3 F 69 17 159/77 94 09/01/17 07:11 09/01/17 07:11 09/01/17 07:11 09/01/17 07:11 09/01/17 07:11 General appearance: Present: cooperative, A&O X 3, pleasant, no acute distress, answers questions appropriately - Head Head exam: Present: atraumatic, normal inspection, normocephalic - Eye Eye exam: Present: normal appearance, conjuntiva pink, sclera anicteric - Neck Neck exam general surgery: Present: supple, trachea midline. Absent: lymphadenopathy - Respiratory Respiratory exam: Present: CTAB. Absent: accessory muscle use, chest wall tenderness, rales, rhonchi, wheezes - Cardiovascular Cardiovascular exam: Present: RRR, +S1, +S2. Absent: diastolic murmur, gallop, rubs, systolic murmur - GI/Abdominal GI/Abdominal exam: Present: normal bowel sounds, soft. Absent: distended, hepatomegaly, tenderness - Extremities Exam Extremities exam: Present: normal capillary refill, normal inspection, warm, radial pulses palpable and symmetrical. Absent: calf tenderness, cyanotic, pedal edema, tenderness - Neurological Exam Neurological exam: Present: alert, oriented X3, no focal deficits. Absent: facial droop, speech deficit - Skin Skin exam: Present: dry, intact, normal color, warm. Absent: rash - Patient Status Disposition: Home, Self-Care Condition: Good Functional capacity at discharge: uses cane/walker Overall status at discharge: patient is back to baseline - Discharge Instructions Follow Up With: Rudy Crowder DO [Primary Care Provider] - Additional Instructions: Please follow up with Dr. Crowder for a recheck in the next 5-7 days. I have contacted his office and left a voicemail to speak with them about outpatient physical and occupational therapy. Take your medications as directed and take the Meclizine if you get dizzy. Use your walker at all times. Return to your normal diet and activities as tolerated. Return to the ER as needed for any other problems or concerns, or if your symptoms return or worsen. - Diet and Activity Activity: as per physical therapy, increase activity as tolerated Diet: advance to your usual diet - VTE Documentation of Mechanical Device: Intermittent pneumatic compression device
[2017-09-01 15:48] VITALS: BP 110/54
== END 2017-09-01 17:32 | disposition home or self-care (01) ==
LOC: EMEROO 19:44 → 3BNU 19:44 → SUATTDRO 08-30 01:54
PROVIDERS: ADMIT Internal Medicine; ATTEND Registered Nurse

== ENCOUNTER 2018-01-17 17:37 | Inpatient (IN) ==
[2018-01-17] MEDS ORDERED: *HR* FentaNYL (PF) 100 MCG/2 ML VIAL IVP ONE (18:00)
--- NOTE | 2018-01-17 18:00 | Emergency Department Note ---
Addendum entered and electronically signed by Hugo Chen DO 01/17/18 20:03: Physical Exam: HEENT: normocephalic without hematoma or contusion, no mancia's sign or raccoon eyes, abrasion to nose with deformity, no fracture or laceration, no septal hematoma, no facial instability, PERRL, EOMI, TM pearly goodman without hemotympanum, oral mucosal membranes moist Neck: no midline tenderness Chest: nontender, no creptius or abrasions Heart: RRR, no murmurs, radial pulses +2 Lung: CTAB, no wheezes or rhonchi Abd: soft, nontender, nondistended Pelvis: stable without deformity, no leg shortening or pain with logrolling Extremities: limited ROM to left shoulder and upper arm due to pain, hematoma to left elbow, crepitus palpated to left shoulder, right upper and lower extremity without deformity or tenderness Skin: abrasion to face, no rashes or contusion/ecchymosis, skin is dry and warm Psych: normal affect and mood MDM: Patient presents with reports of mechanical fall without prodromal symptoms of chest pain, headache, shortness of breath. Pain to the left shoulder with deformity and crepitus on minimal movement. Cap refill and radial pulses intact. Neurovascularly intact. Given history of plavix will continue with advanced imaging including CT cervical spine, maxillofacial, and head. XR left elbow, shoulder, and CXR Cervical Spine CT 01/17/18 17:54 IMPRESSION: 1. No acute abnormality involving the cervical spine. 2. 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 3. Marked gaseous distention of the proximal esophagus which may be secondary to achalasia. D/ / Binh Norris MD / Binh Norris MD Interpreting Provider: Binh Norris MD Face CT 01/17/18 17:54 IMPRESSION: Left scalp soft tissue injury. No acute intracranial hemorrhage. Nasal bone fracture. No other evidence of facial trauma. No acute traumatic injury of the facial bones. D/ / 01/17/2018 19:29:25 Bryce Hardy MD / sienna Interpreting Provider: Bryce Hardy MD Head CT 01/17/18 17:54 IMPRESSION: Left scalp soft tissue injury. No acute intracranial hemorrhage. Nasal bone fracture. No other evidence of facial trauma. No acute traumatic injury of the facial bones. D/ / 01/17/2018 19:29:25 Bryce Hardy MD / sienna Interpreting Provider: Bryce Hardy MD Shoulder X-Ray 01/17/18 17:54 IMPRESSION: Comminuted displaced proximal left humeral fracture. D/ / Darrick Beyer / Darrick Beyer Interpreting Provider: Darrick Beyer Chest X-Ray 01/17/18 18:02 IMPRESSION: Proximal left humeral fracture. No acute cardiopulmonary findings. Marked gaseous distention of the esophagus is unchanged-achalasia?. (Does the patient have a history of gastric pull-through?) D/ / Darrick Beyer / Darrick Beyer Interpreting Provider: Darrick Beyer Patient will be placed in sling for comfort and admitted to hospitalist Dr. Lam after ORTHO consultation. Patient signed out to nighttime physician's Dr. Browning and Dr. Ariza for left humeral fracture. Please see note for further details. Original Note: Disposition Clinical Impression: Humerus fracture Disposition: Still a Patient Condition: Good Referrals: NONE,PCP [Primary Care Provider] - Forms: ED Satisfaction Letter Fall HPI - General Chief Complaint: ED Fall Stated Complaint: fall Time Seen by Provider: 01/17/18 17:42 Source: patient, EMS Mode of arrival: EMS Limitations: no limitations Nursing Notes Reviewed: Yes Vital Signs Reviewed: Yes - History of Present Illness HPI Narrative: 87-year-old female history of CAD with stent on Plavix presents emergency department via EMS after fall with left shoulder pain. Patient states prior to arrival she was bringing the trashcan to the house with the trashcan tripped over and that caused her to be off-balance and she fell landing on her left shoulder and face. She takes Plavix for her stents. She denies loss of consciousness. She is complaining of pain to her left shoulder her left elbow and her face. She states she typically falls if she is not using her walker or a cane. She follows with cardiology and has a Holter monitor scheduled. She denied any prodromal symptoms such as vertigo, headache, chest pain or shortness of breath. Her last meal was at noon approximately 6 hours prior to arrival. Pt Subjective Complaint: fall - Related Data Home Medications Medication Instructions Recorded Confirmed RX: Alendronate Sodium [Fosamax] 70 mg PO QWEEK 08/29/17 08/29/17 RX: Celecoxib [Celebrex] 200 mg PO DAILY 08/29/17 08/29/17 RX: Clopidogrel [Plavix] 75 mg PO DAILY 08/29/17 08/29/17 RX: Esomeprazole Magnesium [Nexium] 40 mg PO DAILY 08/29/17 08/29/17 RX: Lisinopril [Zestril] 40 mg PO DAILY 08/29/17 08/29/17 RX: Metoclopramide HCl 5 mg PO BID 08/29/17 08/29/17 RX: Metoprolol Succinate [Toprol 50 mg PO DAILY 08/29/17 08/29/17 Xl] RX: Sertraline [Zoloft] 100 mg PO DAILY 08/29/17 08/29/17 RX: Simvastatin [Zocor] 20 mg PO HS 08/29/17 08/29/17 RX: Sucralfate [Carafate] 20 ml PO BID 08/29/17 08/29/17 RX: Tolterodine LA (24 HR) [Detrol 4 mg PO DAILY 08/29/17 08/29/17 LA] RX: amLODIPine [Norvasc] 5 mg PO DAILY 08/29/17 08/29/17 Previous Rx's Medication Instructions Recorded RX: Meclizine [Antivert] 12.5 mg PO TID PRN #30 tablet 09/01/17 Allergies Allergy/AdvReac Type Severity Reaction Status Date / Time pregabalin [From Lyrica] AdvReac See Verified 08/29/17 20:42 Comments All systems ED: reviewed and negative except as stated. Review of Systems: As Per HPI Constitutional: Denies: fever, chills, weakness ENT ED: Denies: congestion Cardiovascular: Denies: chest pain Respiratory: Denies: dyspnea Gastrointestinal: Denies: abdominal pain, nausea, vomiting Musculoskeletal: Reports: arthralgia. Denies: back pain, neck pain Integumentary: Reports: abrasion Neurological: Reports: headache. Denies: weakness, numbness, paresthesias, confusion Hematological/Lymphatic: Reports: easy bleeding Fall PMH - Past Medical History Medical history: Reports: coronary artery disease, GERD, hypertension, myocardial infarction Surgical history: Reports: appendectomy, breast surgery, cataract, cholecystectomy, hysterectomy, orthopedic, other Psychiatric history: Reports: no psych history - Social History Smoking Status: Never smoker Alcohol use: Reports: none Drug use: Reports: none Physical Exam - General Limitations: no limitations General appearance: alert, in no apparent distress - Head Head exam: atraumatic, normocephalic, normal inspection - Expanded Head Exam Head exam physicial: Present: abrasion. Absent: laceration - Eye Eye exam: Present: normal appearance, PERRL, EOMI - ENT ENT exam: normal exam, normal oropharynx, mucous membranes moist Course Vital Signs Temperature 97.8 F 01/17/18 17:44 Pulse Rate 60 01/17/18 17:44 Respiratory Rate 18 01/17/18 17:44 Blood Pressure 166/78 01/17/18 17:44 O2 Sat by Pulse Oximetry 99 01/17/18 17:44 Temperature 97.8 F 01/17/18 17:44 Pulse Rate 58 01/17/18 18:30 Respiratory Rate 20 01/17/18 18:30 Blood Pressure 149/76 01/17/18 18:30 O2 Sat by Pulse Oximetry 97 01/17/18 18:30 Oxygen Delivery Oxygen Delivery Room Air
[2018-01-17] MEDS ORDERED: *HR* Morphine Immed Rel 30 MG TABLET PO STA (19:29)
--- NOTE | 2018-01-17 19:42 | Emergency Department Note ---
Disposition Clinical Impression: Humerus fracture Qualifiers: Encounter type: initial encounter Humerus Location: proximal Fracture type: closed Fracture morphology: unspecified fracture morphology Laterality: left Qualified Code(s): S42.202A - Unspecified fracture of upper end of left humerus, initial encounter for closed fracture Disposition: Still a Patient Condition: Good Referrals: NONE,PCP [Primary Care Provider] - Forms: ED Satisfaction Letter General Adult HPI - General Chief complaint: ED Fall Stated complaint: fall Time Seen by Provider: 01/17/18 17:42 Source: patient, EMS Mode of arrival: EMS Limitations: no limitations - History of Present Illness Pain Scale: 10 - Related Data Home Medications Medication Instructions Recorded Confirmed RX: Alendronate Sodium [Fosamax] 70 mg PO QWEEK 08/29/17 08/29/17 RX: Celecoxib [Celebrex] 200 mg PO DAILY 08/29/17 08/29/17 RX: Clopidogrel [Plavix] 75 mg PO DAILY 08/29/17 08/29/17 RX: Esomeprazole Magnesium [Nexium] 40 mg PO DAILY 08/29/17 08/29/17 RX: Lisinopril [Zestril] 40 mg PO DAILY 08/29/17 08/29/17 RX: Metoclopramide HCl 5 mg PO BID 08/29/17 08/29/17 RX: Metoprolol Succinate [Toprol 50 mg PO DAILY 08/29/17 08/29/17 Xl] RX: Sertraline [Zoloft] 100 mg PO DAILY 08/29/17 08/29/17 RX: Simvastatin [Zocor] 20 mg PO HS 08/29/17 08/29/17 RX: Sucralfate [Carafate] 20 ml PO BID 08/29/17 08/29/17 RX: Tolterodine LA (24 HR) [Detrol 4 mg PO DAILY 08/29/17 08/29/17 LA] RX: amLODIPine [Norvasc] 5 mg PO DAILY 08/29/17 08/29/17 Previous Rx's Medication Instructions Recorded RX: Meclizine [Antivert] 12.5 mg PO TID PRN #30 tablet 09/01/17 Allergies Allergy/AdvReac Type Severity Reaction Status Date / Time pregabalin [From Lyrica] AdvReac See Verified 08/29/17 20:42 Comments Constitutional: Denies: fever, chills, weakness ENT ED: Denies: congestion Cardiovascular: Denies: chest pain Respiratory: Denies: dyspnea Gastrointestinal: Denies: abdominal pain, nausea, vomiting Musculoskeletal: Reports: arthralgia. Denies: back pain, neck pain Integumentary: Reports: abrasion Neurological: Reports: headache. Denies: weakness, numbness, paresthesias, con fusion Hematological/Lymphatic: Reports: easy bleeding Past Medical History - Past Medical History Medical history: Reports: coronary artery disease, GERD, hypertension, myocardial infarction Surgical history: Reports: appendectomy, breast surgery, cataract, cholecystectomy, hysterectomy, orthopedic, other Psychiatric history: Reports: no psych history - Social History Smoking Status: Never smoker Smokeless Tobacco Status: No Alcohol use: Reports: none Drug use: Reports: none Physical Exam - General Limitations: no limitations General appearance: alert, in no apparent distress Course Vital Signs Temperature 97.8 F 01/17/18 17:44 Pulse Rate 60 01/17/18 17:44 Respiratory Rate 18 01/17/18 17:44 Blood Pressure 166/78 01/17/18 17:44 O2 Sat by Pulse Oximetry 99 01/17/18 17:44 Temperature 97.8 F 01/17/18 17:44 Pulse Rate 54 01/17/18 19:40 Respiratory Rate 18 01/17/18 19:40 Blood Pressure 143/83 01/17/18 19:40 O2 Sat by Pulse Oximetry 95 01/17/18 19:40 Oxygen Delivery Oxygen Delivery Room Air Attestation Statement - Attestation Attestation: Resident Attestation: I examined this patient and my medical decision making was reviewed with the Resident Physician. I agree with the documented findings, disposition and treatment plan as described except to the extent set forth below. We independently had [id number] contact with the patient. Please see resident note for further details and disposition. Patient on Plavix presenting for evaluation after fall. Patient is fall was mechanical wall trying to move a trash can. Fell onto the left side. Concern for possible head injury. CAT scans and x-rays have been ordered. Awake alert and oriented 3, mild distress secondary to pain, tenderness to the left upper extremity. Patient with humeral fracture. Patient will require orthopedic consult. CT of the head is pending. Further blood work has been ordered.
--- NOTE | 2018-01-17 19:56 | Emergency Department Note ---
START Narrative - START START: 87-year-old female presents emergency department after a mechanical fall. Transition of care provided from the day team, Dr. Chen and Dr. Ho. Patient hemodynamically stable, and plan of the little pain at this point. Patient was given pain medications. We have also given her morphine. I spoke to Dr. Burger, the orthopedic surgeon on the phone. Patient placed in sling. He agrees to follow the patient tomorrow in his service. I spoke to the family at bedside regarding her humerus fracture as well as her nasal fracture. Spoke with Dr. Escamilla, the hospitalist. He requests a CBC and BMP prior to admission. We will call with the results. Patient had mild leukocytosis. Not complaining of any fever, cough, sputum production, dysuria, urinary frequency, urgency. I have added a urinalysis. This result is pending at time of admission. Spoke with Dr. Escamilla again who agreed to accept the patient for admission. I reexamined patient's nose. Does reveal that there is deformity. No tenderness upon palpation of that area. There was no septal hematoma or any active bleeding from the nares. Vital Signs Temperature 97.8 F 01/17/18 17:44 Pulse Rate 60 01/17/18 17:44 Respiratory Rate 18 01/17/18 17:44 Blood Pressure 166/78 01/17/18 17:44 O2 Sat by Pulse Oximetry 99 01/17/18 17:44 Temperature 97.8 F 01/17/18 17:44 Pulse Rate 54 01/17/18 19:40 Respiratory Rate 18 01/17/18 19:40 Blood Pressure 143/83 01/17/18 19:40 O2 Sat by Pulse Oximetry 95 01/17/18 19:40 Oxygen Delivery Oxygen Delivery Room Air Vital Signs Temperature 97.8 F 01/17/18 17:44 Pulse Rate 60 01/17/18 17:44 Respiratory Rate 18 01/17/18 17:44 Blood Pressure 166/78 01/17/18 17:44 O2 Sat by Pulse Oximetry 99 01/17/18 17:44 Temperature 97.8 F 01/17/18 17:44 Pulse Rate 54 01/17/18 19:40 Respiratory Rate 18 01/17/18 19:40 Blood Pressure 143/83 01/17/18 19:40 O2 Sat by Pulse Oximetry 95 01/17/18 19:40 Oxygen Delivery Oxygen Delivery Room Air <Justo Ariza - Last Filed: 01/17/18 21:54> Attestation Statement - Attestation Attestation: I, Aiden Browning MD, personally evaluated this patient and discussed their management with the resident physician. I reviewed the resident's note and agree with the documented findings, medical decision making, and plan of care. This patient was signed out at shift change from Dr. Chen and Dr. Ho. Patient had a fall at home and is on Plavix. She hit her head and injured her left shoulder. X-rays showed a displaced humeral neck fracture and a nasal bone fracture. CTs were negative. On examination patient is a well-developed well-nourished elderly female in no acute distress. She is alert and oriented. There is no cyanosis or diaphoresis. There is some deformity of the nose with no significant tenderness. Some abrasions but no active bleeding. Swelling and tenderness of the left shoulder. Range of motion not tested. Neurovascular function intact distally. There is some mild tenderness in the scalp swelling over the left posterior parietal scalp region. Neck is supple and nontender. Dr. Ariza discussed the case with the orthopedist political consultant who recommended admission and they will consult on patient in the hospital. Dr. Chen discussed the case with the hospitalist, Dr. Escamilla, and he accepted admission of the patient. He did request lab work which was ordered and pending. We will also ordered an ENT consult for evaluation of her nasal bone fracture. <Aiden Browning - Last Filed: 01/17/18 21:57>
[2018-01-17 20:43] LABS: Basophils % 0.2 %; Eosinophils % 0.1 %; Hematocrit 40.5 % (35.3-44.9); Immature Granulocytes % 0.6 % (0-4); Lymphocytes # 0.9 K/mcL (0.6-4.6); Mean Corpuscular HGB Conc 32.1 g/dL (31.6-35.5); Mean Corpuscular Hemoglobin 28.7 pg (28.0-33.3); Mean Corpuscular Volume 89.4 fL (83.0-100.0); Mean Platelet Volume 11.3 fL (9.4-12.4); Monocytes # 0.4 K/mcL (0.0-1.3); Monocytes % 2.4 %; Neutrophils # 15.5 K/mcL (1.6-8.9); Platelet Count 119 K/mcL (140-400); Red Blood Count 4.53 M/mcL (3.82-4.97); Red Cell Distribution Width 14.1 % (11.5-14.5); Segmented Neutrophils % 91.7 %
[2018-01-17 21:02] LABS: BUN/Creatinine Ratio 26 (6-26); Blood Urea Nitrogen 22 mg/dL (8-23); Calcium 10.3 mg/dL (8.6-10.3); Carbon Dioxide 27 mEq/L (23-29); Chloride 101 mEq/L (98-107); Glucose 111 mg/dL (70-105); Osmolality,Calculated 286 (280-300); Potassium 4.1 mEq/L (3.5-5.1); Sodium 136 mEq/L (136-145); eGFR For Non-African Americans > 60 (> 60)
--- NOTE | 2018-01-17 21:54 | Emergency Department Note ---
Disposition Clinical Impression: At risk for falls Humerus fracture Qualifiers: Encounter type: initial encounter Humerus Location: proximal Fracture type: closed Fracture morphology: unspecified fracture morphology Laterality: left Qualified Code(s): S42.202A - Unspecified fracture of upper end of left humerus, initial encounter for closed fracture Nasal bone fracture Qualifiers: Encounter type: initial encounter Fracture type: closed Qualified Code(s): S02.2XXA - Fracture of nasal bones, initial encounter for closed fracture Disposition: Admitted As Inpatient Condition: Good Referrals: NONE,PCP [Primary Care Provider] - Forms: ED Satisfaction Letter General Adult HPI - General Chief complaint: ED Fall Stated complaint: fall Time Seen by Provider: 01/17/18 17:42 Source: patient, EMS Mode of arrival: EMS Limitations: no limitations Nursing Notes Reviewed: Yes Vital Signs Reviewed: Yes - History of Present Illness Pain Scale: 10 - Related Data Home Medications Medication Instructions Recorded Confirmed Alendronate Sodium [Fosamax] 70 mg PO QWEEK 08/29/17 01/17/18 Celecoxib [Celebrex] 200 mg PO DAILY 08/29/17 01/17/18 Clopidogrel [Plavix] 75 mg PO DAILY 08/29/17 01/17/18 Esomeprazole Magnesium [Nexium] 40 mg PO DAILY 08/29/17 01/17/18 Lisinopril [Zestril] 40 mg PO DAILY 08/29/17 01/17/18 Metoclopramide HCl 5 mg PO BID 08/29/17 01/17/18 Metoprolol Succinate [Toprol Xl] 50 mg PO DAILY 08/29/17 01/17/18 Sertraline [Zoloft] 100 mg PO DAILY 08/29/17 01/17/18 Simvastatin [Zocor] 20 mg PO HS 08/29/17 01/17/18 Sucralfate [Carafate] 20 ml PO BID 08/29/17 01/17/18 Tolterodine LA (24 HR) [Detrol LA] 4 mg PO DAILY 08/29/17 01/17/18 amLODIPine [Norvasc] 5 mg PO DAILY 08/29/17 01/17/18 Previous Rx's Medication Instructions Recorded Meclizine [Antivert] 12.5 mg PO TID PRN #30 tablet 09/01/17 Allergies Allergy/AdvReac Type Severity Reaction Status Date / Time pregabalin [From Lyrica] AdvReac See Verified 08/29/17 20:42 Comments Constitutional: Denies: fever, chills, weakness ENT ED: Denies: congestion Cardiovascular: Denies: chest pain Respiratory: Denies: dyspnea Gastrointestinal: Denies: abdominal pain, nausea, vomiting Musculoskeletal: Reports: arthralgia. Denies: back pain, neck pain Integumentary: Reports: abrasion Neurological: Reports: headache. Denies: weakness, numbness, paresthesias, confusion Hematological/Lymphatic: Reports: easy bleeding Past Medical History - Past Medical History Medical history: Reports: coronary artery disease, GERD, hypertension, myocardial infarction Surgical history: Reports: appendectomy, breast surgery, cataract, cholecystectomy, hysterectomy, orthopedic, other Psychiatric history: Reports: no psych history - Social History Smoking Status: Never smoker Smokeless Tobacco Status: No Alcohol use: Reports: none Drug use: Reports: none Physical Exam - General Limitations: no limitations General appearance: alert, in no apparent distress Course Vital Signs Temperature 97.8 F 01/17/18 17:44 Pulse Rate 60 01/17/18 17:44 Respiratory Rate 18 01/17/18 17:44 Blood Pressure 166/78 01/17/18 17:44 O2 Sat by Pulse Oximetry 99 01/17/18 17:44 Temperature 97.8 F 01/17/18 17:44 Pulse Rate 54 01/17/18 19:40 Respiratory Rate 18 01/17/18 19:40 Blood Pressure 143/83 01/17/18 19:40 O2 Sat by Pulse Oximetry 95 01/17/18 19:40 Oxygen Delivery Oxygen Delivery Room Air Medical Decision Making - Medical Records Medical records reviewed: Yes I reviewed the patient's medical records. - Lab Data Lab results reviewed: Yes I reviewed the patient's lab results. Result diagrams: 01/17/18 20:30 01/17/18 20:30 Lab Results 01/17/18 01/17/18 Range/Units 20:30 20:30 WBC 16.9 H (4.3-11.1) K/mcL RBC 4.53 (3.82-4.97) M/mcL Hgb 13.0 (11.5-15.4) g/dL Hct 40.5 (35.3-44.9) % MCV 89.4 (83.0-100.0) fL MCH 28.7 (28.0-33.3) pg MCHC 32.1 (31.6-35.5) g/dL RDW 14.1 (11.5-14.5) % Plt Count 119 L (140-400) K/mcL MPV 11.3 (9.4-12.4) fL Immature Gran % 0.6 (0-4) % Seg Neutrophils % 91.7 % Lymphocytes % 5.0 % Monocytes % 2.4 % Eosinophils % 0.1 % Basophils % 0.2 % Neutrophils # 15.5 H (1.6-8.9) K/mcL Lymphocytes # 0.9 (0.6-4.6) K/mcL Monocytes # 0.4 (0.0-1.3) K/mcL Eosinophils # 0.0 (0.0-0.6) K/mcL Basophils # 0.0 (0.0-0.2) K/mcL Sodium 136 (136-145) mEq/L Potassium 4.1 (3.5-5.1) mEq/L Chloride 101 (98-107) mEq/L Carbon Dioxide 27 (23-29) mEq/L BUN 22 (8-23) mg/dL Creatinine 0.84 (0.60-1.20) mg/dL Est GFR ( Amer) > 60 (> 60) Est GFR (Non-Af Amer) > 60 (> 60) BUN/Creatinine Ratio 26 (6-26) Glucose 111 H (70-105) mg/dL Calculated Osmolality 286 (280-300) Calcium 10.3 (8.6-10.3) mg/dL - Radiology Data Radiology results reviewed: Yes I reviewed the patient's radiology results. Cervical Spine CT 01/17/18 17:54 IMPRESSION: 1. No acute abnormality involving the cervical spine. 2. 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 3. Marked gaseous distention of the proximal esophagus which may be secondary to achalasia. D/ / Binh Norris MD / Binh Norris MD Interpreting Provider: Binh Norris MD Elbow X-Ray 01/17/18 17:54 IMPRESSION: No acute findings. D/ / Bryce Hardy MD / Bryce Hardy MD Interpreting Provider: Bryce Hardy MD Face CT 01/17/18 17:54 IMPRESSION: Left scalp soft tissue injury. No acute intracranial hemorrhage. Nasal bone fracture. No other evidence of facial trauma. No acute traumatic injury of the facial bones. D/ / 01/17/2018 19:29:25 Bryce Hardy MD / sienna Interpreting Provider: Bryce Hardy MD Head CT 01/17/18 17:54 IMPRESSION: Left scalp soft tissue injury. No acute intracranial hemorrhage. Nasal bone fracture. No other evidence of facial trauma. No acute traumatic injury of the facial bones. D/ / 01/17/2018 19:29:25 Bryce Hardy MD / sienna Interpreting Provider: Bryce Hardy MD Shoulder X-Ray 01/17/18 17:54 IMPRESSION: Comminuted displaced proximal left humeral fracture. D/ / Darrick Beyer / Darrick Beyer Interpreting Provider: Darrcik Beyer Chest X-Ray 01/17/18 18:02 IMPRESSION: Proximal left humeral fracture. No acute cardiopulmonary findings. Marked gaseous distention of the esophagus is unchanged-achalasia?. (Does the patient have a history of gastric pull-through?) D/ / Darrick Beyer / Darrick Beyer Interpreting Provider: Darrick Beyer Attestation Statement - Attestation Attestation: Aiden Cantu MD, personally evaluated this patient and discussed their management with the resident physician. I reviewed the resident's note and agree with the documented findings, medical decision making, and plan of care. This patient was signed out at shift change from Dr. Chen and Dr. Ho. Patient had a fall at home and is on Plavix. She hit her head and injured her left shoulder. X-rays showed a displaced humeral neck fracture and a nasal bone fracture. CTs were negative other than the nasal bone fracture. On examination patient is a well-developed well-nourished elderly female in no acute distress. She is alert and oriented. There is no cyanosis or diaphoresis. There is some deformity of the nose with no significant tenderness. Some abrasions but no active bleeding. Swelling and tenderness of the left shoulder. Range of motion not tested. Neurovascular function intact distally. There is some mild tenderness in the scalp swelling over the left posterior parietal scalp region. Neck is supple and nontender. Dr. Ariza discussed the case with the orthopedist ignition expert who recommended admission and they will consult on patient in the hospital. Dr. Chen discussed the case with the hospitalist, Dr. Escamilla, and he accepted admission of the patient. He did request lab work which was ordered and pending. We will also ordered an ENT consult for evaluation of her nasal bone fracture.
[2018-01-17] MEDS ORDERED: Ondansetron ODT 4 MG TAB.RAPDIS SL ONE (21:55)
[2018-01-17] MEDS ORDERED: OXYCODONE Oral CONC 10 MG/0.5 ML ORAL.SYG SL PRN ×2 (22:15)
[2018-01-17] MEDS ORDERED: Ketorolac 15 MG/ML VIAL IVP PRN (22:15)
[2018-01-17] MEDS ORDERED: NON-FORMULARY MEDICATION 1 EACH EACH (Alendronate Sodium [Fosamax] 70 MG) PO SCH (22:15)
[2018-01-17] MEDS ORDERED: Naloxone 0.4 MG/ML INJ IVP PRN (22:15)
--- NOTE | 2018-01-17 22:58 | Internal Med History&Physical ---
Date of Encounter: 01/17/18 Time of Encounter: 22:00 Internal Medicine - H&P: HPI Chief complaint: fall Admitted From: Home Plans for Post Hospital Care: Home History of present illness: Brittany Nunez is an 87 year old woman with a history of coronary artery disease status post stent, hypertension and gastroesophageal surgery who on review of old records is seen to have been admitted on multiple occasions due to recurring falls. She presents now with the complaint of having fallen while taking out her garbage today stating that she tripped over with the garbage can but did not hit her head or lose consciousness. She did suffer trauma to her left shoulder and to her nose was brought in for evaluation by her daughter. She denies feeling dizziness prior to this or having blurry vision. She does state to me that when she gets up and now she may feel a bit lightheaded but states that this was not happening prior. She denies any headache at this time. On arrival her vitals were within normal limits and she had no focal deficits on exam. Imaging studies which were reviewed by me were revealing for nasal bone fracture and a left proximal humerus comminuted displaced fracture. She received morphine and fentanyl in the emergency room for pain control and was put in a sling. ENT and orthopedics have been consulted and will see her in the morning. At this time she feels well and has no complaints at this time. PMHx: As above. SHx: Denies illicit drug use. FHx: Reviewed and found noncontributory. Review of systems: All systems reviewed and negative except as listed above in the HPI. Past Med Surg Social Fam HX - Past Medical History Medical history: coronary artery disease, GERD, hypertension, myocardial infarction Additional medical history: hiatel hernia - acute esophagitis Psychiatric history: no psych history - Past Surgical History Surgical History: appendectomy, breast surgery, cataract, cholecystectomy, hysterectomy, orthopedic, other Additional surgical history: heart stent - egd - ctr x 3, cole hand surgery, nose surgery, esophageal surgery - Social History Smoking Status: Never smoker Smokeless Tobacco Status: No Alcohol use: none Drug use: none - Family History Mother Living Status: Hx Family GI Disorders: Yes Internal Medicine - H&P: Meds Alendronate Sodium [Fosamax] 70 mg PO QWEEK 08/29/17 [History] Celecoxib [Celebrex] 200 mg PO DAILY 08/29/17 [History] Clopidogrel [Plavix] 75 mg PO DAILY 08/29/17 [History] Esomeprazole Magnesium [Nexium] 40 mg PO DAILY 08/29/17 [History] Lisinopril [Zestril] 40 mg PO DAILY 08/29/17 [History] Metoclopramide HCl 5 mg PO BID 08/29/17 [History] Metoprolol Succinate [Toprol Xl] 50 mg PO DAILY 08/29/17 [History] Sertraline [Zoloft] 100 mg PO DAILY 08/29/17 [History] Simvastatin [Zocor] 20 mg PO HS 08/29/17 [History] Sucralfate [Carafate] 20 ml PO BID 08/29/17 [History] Tolterodine LA (24 HR) [Detrol LA] 4 mg PO DAILY 08/29/17 [History] amLODIPine [Norvasc] 5 mg PO DAILY 08/29/17 [History] Meclizine [Antivert] 12.5 mg PO TID PRN #30 tablet 09/01/17 [Rx] Allergy/AdvReac Type Severity Reaction Status Date / Time pregabalin [From Lyrica] AdvReac See Verified 08/29/17 20:42 Comments All Systems PM: A 10-system review of systems was performed and is negative for pertinent findings except as documented above in the HPI. - Constitutional Vitals: Temp Pulse Resp BP Pulse Ox 97.8 F 60 18 117/65 95 01/17/18 17:44 01/17/18 22:04 01/17/18 22:04 01/17/18 22:04 01/17/18 22:04 Exam: Vitals: Reviewed General: Well-developed, NAD Skin: Warm and supple. HEENT: Moist mucous membranes. No conjunctivae pallor. Bloody nasal bridge and nares. Neck: No lymphadenopathy. No JVD. No carotid bruits. No palpable thyroid. Chest: Normal thoracic expansion. Normal breath sounds. Clear to auscultation. Heart: Normal S1 & S2; rhythmic. No rubs or murmurs. Abdomen: Non-distended, soft and non-tender to palpation. Extremities: No clubbing, cyanosis or edema. No calf tenderness. Normal distal pulses. Left arm in a sling. Neurological: Awake, alert and oriented to person, place and time. No focal deficits. Psych: Affect appropriate. Internal Med - H&P Results - Labs CBC & Chem 7: 01/17/18 20:30 01/17/18 20:30 Labs: Short CBC 01/17/18 Range/Units 20:30 WBC 16.9 H (4.3-11.1) K/mcL Hgb 13.0 (11.5-15.4) g/dL Hct 40.5 (35.3-44.9) % Plt Count 119 L (140-400) K/mcL Neutrophils # 15.5 H (1.6-8.9) K/mcL BMP 01/17/18 20:30 Sodium 136 Potassium 4.1 Chloride 101 Carbon Dioxide 27 BUN 22 Creatinine 0.84 Glucose 111 H Calcium 10.3 - Impressions ITS Impressions Cervical Spine CT 01/17/18 17:54 IMPRESSION: 1. No acute abnormality involving the cervical spine. 2. 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 3. Marked gaseous distention of the proximal esophagus which may be secondary to achalasia. D/ / Binh Norris MD / Binh Norris MD Interpreting Provider: Binh Norris MD Elbow X-Ray 01/17/18 17:54 IMPRESSION: No acute findings. D/ / Bryce Hardy MD / Bryce Hardy MD Interpreting Provider: Bryce Hardy MD Face CT 01/17/18 17:54 IMPRESSION: Left scalp soft tissue injury. No acute intracranial hemorrhage. Nasal bone fracture. No other evidence of facial trauma. No acute traumatic injury of the facial bones. D/ / 01/17/2018 19:29:25 Bryce Hardy MD / sienna Interpreting Provider: Bryce Hardy MD Head CT 01/17/18 17:54 IMPRESSION: Left scalp soft tissue injury. No acute intracranial hemorrhage. Nasal bone fracture. No other evidence of facial trauma. No acute traumatic injury of the facial bones. D/ / 01/17/2018 19:29:25 Bryce Hardy MD / sienna Interpreting Provider: Bryce Hardy MD Shoulder X-Ray 01/17/18 17:54 IMPRESSION: Comminuted displaced proximal left humeral fracture. D/ / Darrick Beyer / Darrick Beyer Interpreting Provider: Darrick Beyer Chest X-Ray 01/17/18 18:02 IMPRESSION: Proximal left humeral fracture. No acute cardiopulmonary findings. Marked gaseous distention of the esophagus is unchanged-achalasia?. (Does the patient have a history of gastric pull-through?) D/ / Darrick Beyer / Darrick Beyer Interpreting Provider: Darrick Beyer - Assessment and plan (1) Humerus fracture Current Visit: Yes Status: Acute Assessment and plan: Secondary to traumatic fall. Will consult orthopedics for further mgmt. Keep npo for now and provide pain control. Qualifiers: Encounter type: initial encounter Humerus Location: proximal Fracture type: closed Fracture morphology: unspecified fracture morphology Laterality: left Qualified Code(s): S42.202A - Unspecified fracture of upper end of left humerus, initial encounter for closed fracture (2) Nasal bone fracture Current Visit: Yes Status: Acute Assessment and plan: Secondary to traumatic fall. ENT consult placed. We will keep nothing by mouth and administer pain control. Qualifiers: Encounter type: initial encounter Fracture type: closed Qualified Code(s): S02.2XXA - Fracture of nasal bones, initial encounter for closed fracture (3) Coronary artery disease Current Visit: Yes Status: Chronic Assessment and plan: Will hold clopidogrel for now in the setting of bleeding and possible surgical intervention for fractures. Qualifiers: Coronary Disease-Associated Artery/Lesion type: [place] artery [place] vs. transplanted heart: [place] heart Associated angina: without angina Qualified Code(s): I25.10 - Atherosclerotic heart disease of [place] coronary artery without angina pectoris (4) Essential hypertension Current Visit: Yes Status: Chronic Assessment and plan: Can resume oral antihypertensives daily. (5) Recurrent falls Current Visit: No Status: Chronic Assessment and plan: Will benefit from PT/OT consultation after orthopedics intervention. Orthostatics negative at this moment. (6) DVT prophylaxis Current Visit: Yes Status: Acute Assessment and plan: Heparin indicated. (7) Leukocytosis Current Visit: Yes Status: Acute Assessment and plan: Unclear etiology. No signs of infection present. Will repeat after fluid resuscitation. Qualifiers: Leukocytosis type: unspecified Qualified Code(s): D72.829 - Elevated white blood cell count, unspecified - Time Spent With Patient Total time spent is greater than 50% in coordination of care (as documented) at patient's floor/unit and/or counseling patient: Greater than 35 minutes
[2018-01-18] MEDS: D5% in Lactated Ringers 1,000 ML IVC SCH (00:10)
[2018-01-18] MEDS: *HR* Heparin 5,000 UNIT/ML VIAL SQ SCH ×4 (00:10→21:52)
[2018-01-18 06:08] LABS: Basophils % 0.1 %; Eosinophils % 0.1 %; Hematocrit 33.5 % (35.3-44.9); Immature Granulocytes % 0.6 % (0-4); Lymphocytes # 1.2 K/mcL (0.6-4.6); Lymphocytes % 11.8 %; Mean Corpuscular HGB Conc 32.8 g/dL (31.6-35.5); Mean Corpuscular Hemoglobin 29.1 pg (28.0-33.3); Mean Corpuscular Volume 88.6 fL (83.0-100.0); Mean Platelet Volume 11.2 fL (9.4-12.4); Monocytes # 0.7 K/mcL (0.0-1.3); Neutrophils # 8.2 K/mcL (1.6-8.9); Platelet Count 103 K/mcL (140-400); Red Blood Count 3.78 M/mcL (3.82-4.97); Red Cell Distribution Width 14.5 % (11.5-14.5); Segmented Neutrophils % 80.4 %
[2018-01-18 06:15] LABS: Prothrombin Time 11.8 Seconds (9.4-12.1)
[2018-01-18 06:18] LABS: Activated Partial Thrombo Time 43.9 Seconds (26.0-36.0)
--- NOTE | 2018-01-18 06:28 | Orthopedic Consult Note ---
Date of Encounter: 01/18/18 Time of Encounter: 06:26 History of Present Illness HPI: Ms. Nunez is a 87 year old female Status post fall at home yesterday with reported fracture of the nose, as well as fracture left proximal humerus.The patient alert and oriented 3 In a sling and swath. Left upper extremity neurovascular intact. X-rays show displaced left proximal humerus fracture We discussed operative versus nonoperative management. Patient would like to be able to mobilize quickly recommendations for reverse shoulder replacement. We reviewed the risks and benefits as well as recovery. All questions were answered. The patient agreed to this treatment plan and appeared to understand the plan is reviewed. The surgery will be today. Past Med Surg Social Fam HX - Past Medical History Medical history: coronary artery disease, GERD, hypertension, myocardial infarction Additional medical history: hiatel hernia - acute esophagitis Psychiatric history: no psych history - Past Surgical History Surgical History: appendectomy, breast surgery, cataract, cholecystectomy, hysterectomy, orthopedic, other Additional surgical history: heart stent - egd - ctr x 3, cole hand surgery, nose surgery, esophageal surgery - Social History Smoking Status: Never smoker Smokeless Tobacco Status: No Alcohol use: none Drug use: none - Family History Mother History Unknown: Yes Living Status: Hx Family GI Disorders: Yes Medications and Allergies Alendronate Sodium [Fosamax] 70 mg PO QWEEK 08/29/17 [History] Celecoxib [Celebrex] 200 mg PO DAILY 08/29/17 [History] Clopidogrel [Plavix] 75 mg PO DAILY 08/29/17 [History] Esomeprazole Magnesium [Nexium] 40 mg PO DAILY 08/29/17 [History] Lisinopril [Zestril] 40 mg PO DAILY 08/29/17 [History] Metoclopramide HCl 5 mg PO BID 08/29/17 [History] Metoprolol Succinate [Toprol Xl] 50 mg PO DAILY 08/29/17 [History] Sertraline [Zoloft] 100 mg PO DAILY 08/29/17 [History] Simvastatin [Zocor] 20 mg PO HS 08/29/17 [History] Sucralfate [Carafate] 20 ml PO BID 08/29/17 [History] Tolterodine LA (24 HR) [Detrol LA] 4 mg PO DAILY 08/29/17 [History] amLODIPine [Norvasc] 5 mg PO DAILY 08/29/17 [History] Meclizine [Antivert] 12.5 mg PO TID PRN #30 tablet 09/01/17 [Rx] Allergy/AdvReac Type Severity Reaction Status Date / Time pregabalin [From Lyrica] AdvReac See Verified 08/29/17 20:42 Comments All Systems Reviewed: The remainder of the systems were reviewed and are negative Physical Exam - Constitutional Vitals: Temp Pulse Resp BP Pulse Ox 98.2 F 62 16 100/53 93 01/18/18 06:17 01/18/18 06:17 01/18/18 06:17 01/18/18 06:17 01/18/18 06:17 Results - Labs Result Diagrams: 01/18/18 05:55 01/17/18 20:30 Labs: Abnormal lab results RBC 3.78 M/mcL (3.82-4.97) L 01/18/18 05:55 Hgb 11.0 g/dL (11.5-15.4) L D 01/18/18 05:55 Hct 33.5 % (35.3-44.9) L 01/18/18 05:55 Plt Count 103 K/mcL (140-400) L 01/18/18 05:55 APTT 43.9 Seconds (26.0-36.0) H 01/18/18 05:55 Glucose 111 mg/dL (70-105) H 01/17/18 20:30 H & H 01/17/18 01/18/18 Range/Units 20:30 05:55 Hgb 13.0 11.0 L D (11.5-15.4) g/dL Hct 40.5 33.5 L (35.3-44.9) % All other labs normal. Consult Discharge Plan - Plan Referrals: NONE,PCP [Primary Care Provider] -
[2018-01-18] MEDS ORDERED: Tolterodine LA (24 HR) 4 MG CAP.ER.24H PO SCH (09:00)
[2018-01-18] MEDS ORDERED: Celecoxib 200 MG CAPSULE PO SCH (09:00)
[2018-01-18] MEDS ORDERED: Lisinopril 20 MG TABLET PO SCH (09:00)
[2018-01-18] MEDS ORDERED: amLODIPine 5 MG TABLET PO SCH (09:00)
[2018-01-18] MEDS ORDERED: Metoprolol XL (24 HR) Succ 50 MG TAB.ER.24H PO SCH (09:00)
--- NOTE | 2018-01-18 11:36 | Internal Med Progress Note ---
<BibianacarrolltanyaCarol N - Last Filed: 01/18/18 14:50> Hospitalist Progress Note - Encounter Date of Encounter: 01/18/18 Time of Encounter: 11:32 - Subjective Interval History: Brittany Nunez is an 87 year old woman with a history of coronary artery disease status post stent, hypertension and gastroesophageal surgery. She presented to the ED on 01/17/18 after falling while taking out her garbage yesterday stating that she tripped over with the garbage can. She denies hitting her head or losing consciousness. She suffered trauma to her left shoulder and to her nose was brought in for evaluation by her daughter. She denies feeling dizziness prior to this or having blurry vision. Imaging studies revealed a nasal bone fracture and a left proximal humerus displaced fracture. This morning, pt denies lightheadedness or dizziness. Pt states she has pain only when she moves her left shoulder. Lives by herself at home and states shes been falling down for years - Exam Vitals: Temp Pulse Resp BP Pulse Ox 98.4 F 68 16 104/56 96 01/18/18 10:00 01/18/18 10:00 01/18/18 10:00 01/18/18 10:00 01/18/18 10:00 Exam: Vitals: Reviewed General: Well-developed, NAD, pleasant elderly woman HEENT: Bloody nasal bridge and nares with septal deviation Chest: Normal thoracic expansion. Normal breath sounds. Clear to auscultation. No wheezing or rhonchi Heart: Normal S1 & S2; rhythmic. No murmurs. Abdomen: Non-distended, soft and non-tender to palpation, normal bowel sounds Extremities: No clubbing, cyanosis or edema. Left arm in a sling. Contusion on left elbow, left knee, and below left scapula. - Assessment and Plan (1) Recurrent falls Current Visit: No Status: Chronic Assessment and Plan: She presented to the ED on 01/17/18 after - fell tripping over garbage can, no LOC - she hit face and broke nose/had left proximal humerus displaced fx Plan: -PTOT consulted - NPO for sx of humerus - pain control with morphine and fentanyl -NPO for sx (2) Humerus fracture Current Visit: Yes Status: Acute Assessment and Plan: Pt presented last night after a fall and was found to have a proximal left humerus fracture on shoulder x-ray -Secondary to traumatic fall when she tripped over a garbage can Plan: -Orthopedics is doing a reverse shoulder replacement later this afternoon -Keep npo for now -provide pain control with Morphine and Fentanyl. (3) Nasal bone fracture Current Visit: Yes Status: Acute Assessment and Plan: CT scan showed nondisplaced nasal bone fracture -Secondary to traumatic fall Plan: -ENT consult placed -ENT does not recommend any surgical intervention and will heal on its own (4) Coronary artery disease Current Visit: Yes Status: Chronic Assessment and Plan: -has hx of CAD -on Simvastatin, Toprol, Lisinopril, Plavix -Plavix is being held before surgery -Will hold clopidogrel before surgery (5) Essential hypertension Current Visit: Yes Status: Chronic Assessment and Plan: BP 137/88 -controlled -Continue Metoprolol -Continue Amlodipine and Lisinopril (6) GERD (gastroesophageal reflux disease) Current Visit: Yes Status: Acute Assessment and Plan: Chronic -On omeprazole -Continue home dose (7) Anxiety Current Visit: Yes Status: Acute Assessment and Plan: -On Zoloft -Continue home dose (8) DVT prophylaxis Current Visit: Yes Status: Acute Assessment and Plan: -Heparin SQ DVT Prophylaxis: -Hold heparin for surgery this afternoon - Time Spent with Patient Total time spent is greater than 50% in coordination of care (as documented) at patient's floor/unit and/or counseling patient: less than 15 minutes Plan of Care Discussed with: patient Internal Medicine: Result - Labs CBC & Chem 7: 01/18/18 05:55 01/17/18 20:30 Labs: Short CBC 01/17/18 01/18/18 Range/Units 20:30 05:55 WBC 16.9 H 10.2 (4.3-11.1) K/mcL Hgb 13.0 11.0 L D (11.5-15.4) g/dL Hct 40.5 33.5 L (35.3-44.9) % Plt Count 119 L 103 L (140-400) K/mcL Neutrophils # 15.5 H 8.2 (1.6-8.9) K/mcL BMP 01/17/18 20:30 Sodium 136 Potassium 4.1 Chloride 101 Carbon Dioxide 27 BUN 22 Creatinine 0.84 Glucose 111 H Calcium 10.3 - ABG Interpretation ABG results: PT/INR, D-dimer PT 11.8 Seconds (9.4-12.1) 01/18/18 05:55 - Impressions Impressions Cervical Spine CT 01/17/18 17:54 IMPRESSION: 1. No acute abnormality involving the cervical spine. 2. 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 3. Marked gaseous distention of the proximal esophagus which may be secondary to achalasia. D/ / Binh Norris MD / Binh Norris MD Interpreting Provider: Binh Norris MD Elbow X-Ray 01/17/18 17:54 IMPRESSION: No acute findings. D/ / Bryce Hardy MD / Bryce Hardy MD Interpreting Provider: Bryce Hardy MD Face CT 01/17/18 17:54 IMPRESSION: Left scalp soft tissue injury. No acute intracranial hemorrhage. Nasal bone fracture. No other evidence of facial trauma. No acute traumatic injury of the facial bones. D/ : / 01/17/2018 19:29:25 Bryce Hardy MD / sienna Interpreting Provider: Bryce Hardy MD Head CT 01/17/18 17:54 IMPRESSION: Left scalp soft tissue injury. No acute intracranial hemorrhage. Nasal bone fracture. No other evidence of facial trauma. No acute traumatic injury of the facial bones. D/ : / 01/17/2018 19:29:25 Bryce Hardy MD / sienna Interpreting Provider: Bryce Hardy MD Shoulder X-Ray 01/17/18 17:54 IMPRESSION: Comminuted displaced proximal left humeral fracture. D/ / Darrick Beyer / Darrick Beyer Interpreting Provider: Darrick Beyer Chest X-Ray 01/17/18 18:02 IMPRESSION: Proximal left humeral fracture. No acute cardiopulmonary findings. Marked gaseous distention of the esophagus is unchanged-achalasia?. (Does the patient have a history of gastric pull-through?) D/ / Darrick Beyer / Darrick Beyer Interpreting Provider: Darrick Beyer Consult Discharge Plan - Plan Referrals: NONE,PCP [Primary Care Provider] - <Kiarra Monet - Last Filed: 01/18/18 18:31> Hospitalist Progress Note - Exam Vitals: Temp Pulse Resp BP Pulse Ox 98.1 F 66 14 116/64 92 01/18/18 18:10 01/18/18 18:10 01/18/18 18:10 01/18/18 18:10 01/18/18 18:10 - Assessment and Plan (1) Recurrent falls Current Visit: No Status: Chronic (2) Coronary artery disease Current Visit: Yes Status: Chronic (3) Essential hypertension Current Visit: Yes Status: Chronic (4) Humerus fracture Current Visit: Yes Status: Acute (5) Nasal bone fracture Current Visit: Yes Status: Acute (6) DVT prophylaxis Current Visit: Yes Status: Acute (7) Leukocytosis Current Visit: Yes Status: Acute - Time Spent with Patient Total time spent is greater than 50% in coordination of care (as documented) at patient's floor/unit and/or counseling patient: Internal Medicine: Result - Labs CBC & Chem 7: 01/18/18 05:55 01/17/18 20:30 Labs: Short CBC 01/17/18 01/18/18 Range/Units 20:30 05:55 WBC 16.9 H 10.2 (4.3-11.1) K/mcL Hgb 13.0 11.0 L D (11.5-15.4) g/dL Hct 40.5 33.5 L (35.3-44.9) % Plt Count 119 L 103 L (140-400) K/mcL Neutrophils # 15.5 H 8.2 (1.6-8.9) K/mcL BMP 01/17/18 20:30 Sodium 136 Potassium 4.1 Chloride 101 Carbon Dioxide 27 BUN 22 Creatinine 0.84 Glucose 111 H Calcium 10.3 - ABG Interpretation ABG results: PT/INR, D-dimer PT 11.8 Seconds (9.4-12.1) 01/18/18 05:55 - Impressions Impressions Cervical Spine CT 01/17/18 17:54 IMPRESSION: 1. No acute abnormality involving the cervical spine. 2. 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 3. Marked gaseous distention of the proximal esophagus which may be secondary to achalasia. D/ / Binh Norris MD / Binh Norris MD Interpreting Provider: Binh Norris MD Elbow X-Ray 01/17/18 17:54 IMPRESSION: No acute findings. D/ / Bryce Hardy MD / Bryce Hardy MD Interpreting Provider: Bryce Hardy MD Face CT 01/17/18 17:54 IMPRESSION: Left scalp soft tissue injury. No acute intracranial hemorrhage. Nasal bone fracture. No other evidence of facial trauma. No acute traumatic injury of the facial bones. D/ /17/2018 19:29:25 Bryce Hardy MD / sienna Interpreting Provider: Bryce Hardy MD Head CT 01/17/18 17:54 IMPRESSION: Left scalp soft tissue injury. No acute intracranial hemorrhage. Nasal bone fracture. No other evidence of facial trauma. No acute traumatic injury of the facial bones. D/ : / 01/17/2018 19:29:25 Bryce Hardy MD / sienna Interpreting Provider: Bryce Hardy MD Shoulder X-Ray 01/17/18 17:54 IMPRESSION: Comminuted displaced proximal left humeral fracture. D/ / Darrick Beyer / Darrick Beyer Interpreting Provider: Darrick Beyer Chest X-Ray 01/17/18 18:02 IMPRESSION: Proximal left humeral fracture. No acute cardiopulmonary findings. Marked gaseous distention of the esophagus is unchanged-achalasia?. (Does the patient have a history of gastric pull-through?) D/ / Darrick Beyer / Darrick Beyer Interpreting Provider: Darrick Beyer Shoulder X-Ray 01/18/18 13:52 IMPRESSION: 1. Status post shoulder arthroplasty. No immediate complication. 2. Redemonstration of patient's known humeral neck fracture. D/ / 01/18/2018 15:49:41 Luci Mujica MD / marisol Interpreting Provider: Luci Mujica MD - Attending Attestation I examined this patient and my medical decision-making was reviewed with the Medical Student. I agree with the documented findings, disposition and treatment plan as described except to the extent set forth below. 87-year-old woman with history of CAD, HTN and multiple falls in the past presented after a mechanical fall while taking out her garbage. she ended up falling on her shoulder. Patient was stable on arrival to ED. Shoulder x-ray showed comminuted displaced proximal left humeral fracture. CT of head/face showed a nasal bone fracture. VS reviewed; unremarkable Physical exam: Gen: NAD, left shoulder/arm sling, limited physical exam due to fracture. Sensation in hand is preserved, no edema, radial pulses both upper extremities normal. A/P 1 - Humerus fracture 2 - Nasal bone fracture 3 - Coronary artery disease 4- Hypertension 5 - Recurring falls 6 - Leukocytosis - likely stress reaction 7 - DVT prophylaxis - Orthopedics consulted, likely surgery today. Continue pain management. - ENT to see patient today - Resume home medications when able. - PT/OT when stable. - Recheck CBC tomorrow. <Carol Lilly - Last Filed: 01/18/18 14:50> (2) Humerus fracture Qualifiers: Encounter type: initial encounter Humerus Location: proximal Fracture type: closed Fracture morphology: unspecified fracture morphology Laterality: left Qualified Code(s): S42.A - Unspecified fracture of upper end of left humerus, initial encounter for closed fracture (3) Nasal bone fracture Qualifiers: Encounter type: initial encounter Fracture type: closed Qualified Code(s): S02.2XXA - Fracture of nasal bones, initial encounter for closed fracture (4) Coronary artery disease Qualifiers: Coronary Disease-Associated Artery/Lesion type: [place] artery [place] vs. transplanted heart: [place] heart Associated angina: without angina Qualified Code(s): I25.10 - Atherosclerotic heart disease of [place] coronary artery without angina pectoris <Kiarra Monet - Last Filed: 01/18/18 18:31> (2) Coronary artery disease Qualifiers: Coronary Disease-Associated Artery/Lesion type: [place] artery [place] vs. transplanted heart: [place] heart Associated angina: without angina Qualified Code(s): I25.10 - Atherosclerotic heart disease of [place] coronary artery without angina pectoris (4) Humerus fracture Qualifiers: Encounter type: initial encounter Humerus Location: proximal Fracture type: closed Fracture morphology: unspecified fracture morphology Laterality: left Qualified Code(s): S42.202A - Unspecified fracture of upper end of left humerus, initial encounter for closed fracture (5) Nasal bone fracture Qualifiers: Encounter type: initial encounter Fracture type: closed Qualified Code(s): S02.2XXA - Fracture of nasal bones, initial encounter for closed fracture (7) Leukocytosis Qualifiers: Leukocytosis type: unspecified Qualified Code(s): D72.829 - Elevated white blood cell count, unspecified
--- NOTE | 2018-01-18 12:50 | ENT - Consult Note ---
Date of Encounter: 01/18/18 Time of Encounter: 12:47 Assessment and Plan (1) Nasal bone fracture Current Visit: Yes Status: Acute The patient has old healed nasal bone fractures from prior fall and upon reviewing a picture of the patient from Jul, 2017 that her daughter had her nasal dorsum appears the same as it did at that time. Physical exam of the nose shows no stepoffs and there is no mobility of the nasal bones. The patient has a good nasal airway bilaterally and the septum is straight. CT face shows a non displaced nasal bone fracture. I would not recommend any surgical intervention for her non displaced nasal bone fracture as it will heal on it's own. pt and family understand and are in agreement. questions answered. no follow up needed. please call if any questions. I will sign off. Qualifiers: Encounter type: initial encounter Fracture type: closed Qualified Code(s): S02.2XXA - Fracture of nasal bones, initial encounter for closed fracture History of Present Illness Consult date: 01/18/18 Reason for ENT Consult: other (evaluate nasal bone fracture) History of present illness: The patient is a 87 year old female who tripped on a garbage can outside yesterday. When she fell, she turned her face to the right so that she would not break her glasses. She states that she has fallen in the past and broken her nose and did not have it repaired. She has no nasal congestion, she has minimal pain in the bridge of her nose. She says that she has always had a big nose. She was seen in the ER and CT face showed a nasal bone fracture. No other facial fractures were seen. Past Med Surg Social Fam HX - Past Medical History Medical history: coronary artery disease, GERD, hypertension, myocardial infarction Additional medical history: hiatel hernia - acute esophagitis Psychiatric history: no psych history - Past Surgical History Surgical History: appendectomy, breast surgery, cataract, cholecystectomy, hysterectomy, orthopedic, other Additional surgical history: heart stent - egd - ctr x 3, cole hand surgery, nose surgery, esophageal surgery - Social History Smoking Status: Never smoker Smokeless Tobacco Status: No Alcohol use: none Drug use: none - Family History Mother History Unknown: Yes Living Status: Hx Family GI Disorders: Yes Medications and Allergies Alendronate Sodium [Fosamax] 70 mg PO QWEEK 08/29/17 [History] Celecoxib [Celebrex] 200 mg PO DAILY 08/29/17 [History] Clopidogrel [Plavix] 75 mg PO DAILY 08/29/17 [History] Esomeprazole Magnesium [Nexium] 40 mg PO DAILY 08/29/17 [History] Lisinopril [Zestril] 40 mg PO DAILY 08/29/17 [History] Metoclopramide HCl 5 mg PO BID 08/29/17 [History] Metoprolol Succinate [Toprol Xl] 50 mg PO DAILY 08/29/17 [History] Sertraline [Zoloft] 100 mg PO DAILY 08/29/17 [History] Simvastatin [Zocor] 20 mg PO HS 08/29/17 [History] Sucralfate [Carafate] 20 ml PO BID 08/29/17 [History] Tolterodine LA (24 HR) [Detrol LA] 4 mg PO DAILY 08/29/17 [History] amLODIPine [Norvasc] 5 mg PO DAILY 08/29/17 [History] Meclizine [Antivert] 12.5 mg PO TID PRN #30 tablet 09/01/17 [Rx] Allergy/AdvReac Type Severity Reaction Status Date / Time pregabalin [From Lyrica] AdvReac See Verified 08/29/17 20:42 Comments ENT - ROS All systems PM: reviewed and no additional remarkable complaints except as stated (patient has a left humerus fracture and is in a sling.) ENT Exam Initial Vital Signs Temp Pulse Resp BP Pulse Ox 97.8 F 60 18 166/78 99 01/17/18 17:44 01/17/18 17:44 01/17/18 17:44 01/17/18 17:44 01/17/18 17:44 - General physical appearance well developed, well nourished, no distress - ENT Other (face: minor abrasions on the nasal dorsum on the left and also on the nasal tip. There is minimal edema of the nasal dorsum. The nasal bones are deviated to the left but are not tender to palpation or mobile and there is no step off palpable. The nasal tip is bulbous. The nasal septum is straight. The nasal airway is widely patent bilaterally. The inferior and middle turbinates are normal. The mucosa is normal. There is no epistaxis. There is no tenderness in the periorbital region bilaterally and no stepoff. There is no periorbital ecchymosis or edema. The lips, and gums are normal. The hard and soft palate are normal. The posterior pharynx is normal. The tongue is mobile and without lesion or mass. the floor of mouth is soft. The neck is supple, trachea midline, no masses or cervical lymphadenopathy. the thyroid is not enlarged. there are no palpable masses. ) Exam Initial Vital Signs Temp Pulse Resp BP Pulse Ox 97.8 F 60 18 166/78 99 01/17/18 17:44 01/17/18 17:44 01/17/18 17:44 01/17/18 17:44 01/17/18 17:44 Results - Labs 01/18/18 05:55 01/17/18 20:30 Abnormal lab results RBC 3.78 M/mcL (3.82-4.97) L 01/18/18 05:55 Hgb 11.0 g/dL (11.5-15.4) L D 01/18/18 05:55 Hct 33.5 % (35.3-44.9) L 01/18/18 05:55 Plt Count 103 K/mcL (140-400) L 01/18/18 05:55 APTT 43.9 Seconds (26.0-36.0) H 01/18/18 05:55 Glucose 111 mg/dL (70-105) H 01/17/18 20:30 Diabetes panel 01/17/18 Range/Units 20:30 Sodium 136 (136-145) mEq/L Potassium 4.1 (3.5-5.1) mEq/L Chloride 101 (98-107) mEq/L Carbon Dioxide 27 (23-29) mEq/L BUN 22 (8-23) mg/dL Creatinine 0.84 (0.60-1.20) mg/dL Glucose 111 H (70-105) mg/dL Calcium 10.3 (8.6-10.3) mg/dL Calcium panel 01/17/18 Range/Units 20:30 Calcium 10.3 (8.6-10.3) mg/dL Pituitary panel 01/17/18 Range/Units 20:30 Sodium 136 (136-145) mEq/L Potassium 4.1 (3.5-5.1) mEq/L Chloride 101 (98-107) mEq/L Carbon Dioxide 27 (23-29) mEq/L BUN 22 (8-23) mg/dL Creatinine 0.84 (0.60-1.20) mg/dL Glucose 111 H (70-105) mg/dL Calcium 10.3 (8.6-10.3) mg/dL Adrenal panel 01/17/18 Range/Units 20:30 Sodium 136 (136-145) mEq/L Potassium 4.1 (3.5-5.1) mEq/L Chloride 101 (98-107) mEq/L Carbon Dioxide 27 (23-29) mEq/L BUN 22 (8-23) mg/dL Creatinine 0.84 (0.60-1.20) mg/dL Glucose 111 H (70-105) mg/dL Calcium 10.3 (8.6-10.3) mg/dL All other labs normal. - Imaging Additional studies: CT face films and report reviewed - the patient has a non displaced left nasal bone fracture and there is deviation of the nasal bones to the left. there are no other facial fractures. Consult Discharge Plan - Plan Referrals: NONE,PCP [Primary Care Provider] -
[2018-01-18] MEDS ORDERED: *HR* Propofol 200 MG/20 ML VIAL IVP ONE (12:56)
[2018-01-18] MEDS ORDERED: *HR* FentaNYL (PF) 100 MCG/2 ML VIAL ONE (12:56)
[2018-01-18] MEDS ORDERED: Dexamethasone 4 MG/ML VIAL ONE (12:58)
[2018-01-18] MEDS ORDERED: Lidocaine -MPF 2% 2 ML VIAL ONE (12:58)
[2018-01-18] MEDS ORDERED: Ondansetron 4 MG/2 ML VIAL ONE (12:58)
--- NOTE | 2018-01-18 12:59 | Anesthesia Evaluation PreOp ---
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: Other (anxiety depression) Other Medical History: GERD, Other (hiatal hernia, proximal humerus fracture) Anesthesia History: No Prior Anesthetic Complications, Past Anesthesia (appendectomy, breast surgery, cataract, cholecystectomy, hysterectomy, or thopedic) : No Alcohol Use: none Drug use: none Medications and Allergies Alendronate Sodium [Fosamax] 70 mg PO QWEEK 08/29/17 [History] Celecoxib [Celebrex] 200 mg PO DAILY 08/29/17 [History] Clopidogrel [Plavix] 75 mg PO DAILY 08/29/17 [History] Esomeprazole Magnesium [Nexium] 40 mg PO DAILY 08/29/17 [History] Lisinopril [Zestril] 40 mg PO DAILY 08/29/17 [History] Metoclopramide HCl 5 mg PO BID 08/29/17 [History] Metoprolol Succinate [Toprol Xl] 50 mg PO DAILY 08/29/17 [History] Sertraline [Zoloft] 100 mg PO DAILY 08/29/17 [History] Simvastatin [Zocor] 20 mg PO HS 08/29/17 [History] Sucralfate [Carafate] 20 ml PO BID 08/29/17 [History] Tolterodine LA (24 HR) [Detrol LA] 4 mg PO DAILY 08/29/17 [History] amLODIPine [Norvasc] 5 mg PO DAILY 08/29/17 [History] Meclizine [Antivert] 12.5 mg PO TID PRN #30 tablet 09/01/17 [Rx] Allergy/AdvReac Type Severity Reaction Status Date / Time pregabalin [From Lyrica] AdvReac See Verified 08/29/17 20:42 Comments - Meds/Allergy Pre-op Review Medications Reviewed: Yes Allergies Reviewed: Yes Beta Blockers on Current Med List: Yes Anesthesia Results - Labs 01/18/18 05:55 01/17/18 20:30 - Imaging EKG: report reviewed (SINUS BRADYCARDIA BASELINE ARTIFACT), image reviewed Additional studies: 08/2017 Impressions: LVEF 65%. Normal LV chamber size, wall thickness and function. Mild left ventricular diastolic dysfunction. Normal right ventricular structure and function. No evidence of a PFO by color Doppler. Mild mitral regurgitation. Mild tricuspid regurgitation. Mild pulmonary hypertension Head CT 12/2017 IMPRESSION: Left scalp soft tissue injury. No acute intracranial hemorrhage. Nasal bone fracture. No other evidence of facial trauma. No acute traumatic injury of the facial bones.. Anesthesia Exam Vital Signs/O2 Sat/Glucose, Most Recent Temp Pulse Resp BP Pulse Ox 98.4 F 68 16 104/56 96 01/18/18 10:01/18/18 10:01/18/18 10:00 01/18/18 10:01/18/18 10:00 - HEENT Pupil (Motor): Pupils equal Mallampati: II Teeth: Poor dentition Oral Opening: Greater than 3 - COTTAGE SUPERVISOR LOC: Oriented [employer]OTTAGE SUPERVISOR Motor: Normal RUE, Normal LUE, Normal RLE, Normal LLE, Normal Face COTTAGE SUPERVISOR Sensory: Normal: RUE, LUE, RLE, LLE, Face - Cardiac Rhythm: Regular Murmur: None - Pulmonary Breath Sounds: bilateral Clear Respiratory Effort: Symmetrical Anesthesia Assess/Plan ASA Score: 3 Modified Jovi Scale for Level of Consciousness: Cooperative, oriented, and tranquil Anesthetic Plan: General, Regional Monitoring Plan: Standard Monitors Recovery Plan: PACU
[2018-01-18] MEDS ORDERED: Bupivacaine/Clonidine Syringe 1 EACH SYRINGE ONE (13:02)
[2018-01-18] MEDS ORDERED: ROPIVACAINE HCL/PF 0.5% 30 ML VIAL ONE (13:02)
--- NOTE | 2018-01-18 13:19 | Anesthesia Evaluation Post Op ---
Date of Encounter: 01/18/18 Time of Encounter: 10:30 - Vital Signs Vital Signs: Last Vital Signs Temp 98.4 F 01/18/18 10:00 Pulse 68 01/18/18 10:00 Resp 16 01/18/18 10:00 BP 104/56 01/18/18 10:00 Pulse Ox 96 01/18/18 10:00 - Lungs Lungs: Clear Ascult./Percussion - Airway Airway: Non-obstructed - Cardiovascular Regular Rate - Mental Status Mental Status: Alert & Oriented, Answers Appropriately - Pain Pain Scale: 2 - Nausea Vomiting Nausea Vomiting: Not Present - Hydration Hydration: Tolerates oral liquids - Discharge PostOp Status: Discharge Patient to home
[2018-01-18] MEDS ORDERED: *HR* Labetalol 20 MG/4 ML SYRINGE IVP PRN ×2 (13:40→15:55)
[2018-01-18] MEDS ORDERED: Ondansetron 4 MG/2 ML VIAL IVP ONE ×2 (13:40→15:55)
[2018-01-18] MEDS ORDERED: *HR* HYDROmorphone (PF) 1 MG/ML SYRINGE IVP PRN ×2 (13:40→15:55)
--- NOTE | 2018-01-18 13:45 | Anesthesia Procedures ---
Date of Encounter: 01/18/18 Time of Encounter: 13:43 Procedures: Anesthesia - Nerve Block Procedure Date: 01/18/18 Time: 13:43 Pre-op Diagnosis: proximal humerus Correct side: Left Monitor Applied: EKG, BP, Pulse Oximetry Supplemental Oxygen via Nasal Cannula (L/min): 2 Sedation: Fentanyl (mcg): 100 Indication: Post Op Analgesia Pre-op Neuro Deficits: No Block Type: Supraclavicular Sterile Technique: Yes Ultrasound used: Yes Anatomy identified: Yes Visual spread of Local: Yes Blood on Needle Aspiration: No Prep: Chlorhexadine Needle: 22 x 50 mm Stimuplex Local: 0.25% Bupivicaine w/Clonidine 20 mcg/cc (10 cc for intercostalbrachial and 5 cc cervical plexus ), Ropivacaine (0.5% ropivacaine with 8 mg decadron 30 mg supraclav) Complications: None/effective block
[2018-01-18] MEDS ORDERED: CeFAZolin Syr 2,000MG/20 ML 2,000 MG/20 ML SYRINGE IVPB ONE (13:50)
[2018-01-18] MEDS ORDERED: EPHEDrine 50 MG/ML VIAL ONE (14:05)
--- NOTE | 2018-01-18 14:06 | Event Note ---
Date of Encounter: 01/18/18 Time of Encounter: 09:00 Patient seen, discussed with patient plan for surgery. Consent reviewed and signed Patient A&O x 3. All questions were answered also spoke with family member via phone later in the morning.
--- NOTE | 2018-01-18 14:56 | Orthopedic Operative Note ---
Date of procedure: 01/18/18 Pre-op diagnosis: Displaced left proximal humerus fracture comminuted Post-op diagnosis: same Procedure: Procedure: Reverse total shoulder replacment, left Estimated blood loss: 50 cc Hardware: Metal and polyethylene replacement Arthrex glenoid baseplate: 24+4, 25 mm screw 2, 4.5 cortical screws, 2, 5.5 locking screws glenosphere: 39+4 , humeral stem: 5 , poly insert: 3 2 Arthrex cerclage fiber tapes Procedural Notes: Displaced fracture with comminution Operative procedure: The patient was brought to the operating room and placed on the operating room table. After general anesthesia was administered the operative shoulder was examined. Findings were noted. The patient was placed in the modified beachchair position. All pressure points were padded appropriately. And the head was stabilized in the neutral position. The operative extremity was prepped and draped in the sterile surgical fashion. The patient received IV antibiotics prior to skin incision. A standard deltopectoral approach was made to the operative shoulder. Incision was made to the skin and subcutaneous tissue,hemo stasis was obtained with Bovie cautery. Using careful blunt dissection the cephalic vein was identified and mobilized medially. The deltopectoral interval was developed and the clavipectoral fascia was incised. The greater tuberosity was identified and tagged with 2, #2 FiberWire suture to cerclage fiber tapes. The humeral head was removed. Anterior and posterior Bankart retractors were placed to expose the glenoid. The glenoid guide was seated and the centering hole was made. It was reamed with the appropriate reamer. The 24+4, 25 mm screw baseplate was seated and secured with (2) 4.5 screws and 12 5.5 screw. The baseplate was irrigated and dried and the 39+4 was seated and secured with the Demarco taper. The Demarco taper was tested and found to be secure the humerus was redislocated and prepared with the diaphyseal reamers, followed by a broaching process up to the appropriate size 5 in 20 degrees of retro-version. Trial reduction found the shoulder to be relocatable. Trial components were removed. The real 5 humeral component was impaced in place in 20 degrees of retroversion. Trial reduction found the shoulder to be relocatable and stable with the appropriate 3poly insert. Trial component was removed and the real implant was seated and secured the shoulder was reduced. The shoulder had excellent motion and excellent stability and no evidence of dislocation. The greater tuberosity was reduced and repaired to the implant with 2 cerclage fiber tapes. The deep tissue was irrigated with pulse irrigation. The PA close the shoulder. The deltopectoral interval was closed with a running #1 PDS suture, subcutaneous tissue was irrigated and closed with 0 PDS suture, the skin was closed with Dermabond. The patient was placed in a sterile dressing, abduction brace and extubated. The patient was then transferred to the recovery room in stable condition. Anesthesia: GETA Surgeon: Olman Gramajo Was there an biology laboratory assistant present: No Estimated blood loss (cc): 50 Condition: stable Disposition: PACU
--- NOTE | 2018-01-18 15:52 | Anesthesia Evaluation Post Op ---
Date of Encounter: 01/18/18 Time of Encounter: 15:52 - Vital Signs Vital Signs: Last Vital Signs Temp 97.6 F 01/18/18 15:38 Pulse 72 01/18/18 15:38 Resp 16 01/18/18 15:38 BP 111/56 01/18/18 15:38 Pulse Ox 96 01/18/18 15:38 - Lungs Lungs: Clear Ascult./Percussion - Airway Airway: Non-obstructed - Cardiovascular Regular Rate - Mental Status Mental Status: Alert & Oriented, Answers Appropriately - Pain Pain Scale: 2 - Nausea Vomiting Nausea Vomiting: Not Present - Hydration Hydration: Tolerates oral liquids - Discharge PostOp Status: Discharge Patient to home
[2018-01-18] MEDS ORDERED: Temazepam 15 MG CAPSULE PO PRN (15:55)
[2018-01-18] MEDS ORDERED: Ketorolac 15 MG/ML VIAL IVP PRN (15:55)
[2018-01-18] MEDS ORDERED: OXYCODONE Oral CONC 10 MG/0.5 ML ORAL.SYG SL PRN ×2 (15:55)
[2018-01-18] MEDS ORDERED: MOM Conc 10 ML UD.LIQ PO PRN (15:55)
[2018-01-18] MEDS ORDERED: Naloxone 0.4 MG/ML INJ IVP PRN ×2 (15:55)
[2018-01-18] MEDS ORDERED: Sennosides 8.6 MG TABLET PO PRN (15:55)
[2018-01-19 01:27] LABS: Bilirubin,Urine Negative (Negative); Blood,Urine Trace (Negative); Clarity,Urine Cloudy (Clear); Color,Urine Yellow (Yellow); Glucose,Urine (UA) Normal (Normal); Ketones,Urine Negative (Negative); Leukocyte Esterase,Urine Moderate (Negative); Nitrite,Urine Positive (Negative); Protein,Urine Negative (Neg-Trace); Specific Gravity,Urine 1.012 (1.010-1.025); Urobilinogen,Urine Normal (Normal)
[2018-01-19 01:29] LABS: Bacteria,Urine Moderate per hpf (None-Few); Hyaline Casts,Urine None Seen per lpf (None-Few); RBC,Urine 0-3 per hpf (0-3); Squamous Epithelial Cell,Urine Moderate per lpf (None-Few)
[2018-01-19 03:35] LABS: Hematocrit 29.7 % (35.3-44.9); Hemoglobin 9.5 g/dL (11.5-15.4)
[2018-01-19] MEDS: D5% in Lactated Ringers 1,000 ML IVC SCH ×4 (04:58→21:37)
[2018-01-19] MEDS: *HR* Heparin 5,000 UNIT/ML VIAL SQ SCH ×3 (05:56→21:38)
[2018-01-19] MEDS ORDERED: Acetaminophen IV 1,000 MG/100 ML INFUS..BTL IVPB PRN (06:31)
[2018-01-19] MEDS: Metoprolol XL (24 HR) Succ 50 MG TAB.ER.24H PO SCH (08:01)
[2018-01-19] MEDS: amLODIPine 5 MG TABLET PO SCH (08:01)
[2018-01-19] MEDS: Tolterodine LA (24 HR) 4 MG CAP.ER.24H PO SCH (08:01)
[2018-01-19] MEDS: Celecoxib 200 MG CAPSULE PO SCH (08:02)
[2018-01-19 08:22] LABS: Alanine Aminotransferase 213 Units/L (7-52); Albumin 3.3 g/dL (3.5-5.7); Albumin/Globulin Ratio 1.4 (1.1-2.2); Alkaline Phosphatase 100 Units/L (34-104); Aspartate Amino Transferase 155 Units/L (13-39); BUN/Creatinine Ratio 25 (6-26); Bilirubin,Total 0.3 mg/dL (0.3-1.0); Blood Urea Nitrogen 22 mg/dL (8-23); Calcium 9.1 mg/dL (8.6-10.3); Carbon Dioxide 26 mEq/L (23-29); Chloride 104 mEq/L (98-107); Globulin 2.4 g/dL (2.4-3.5); Glucose 121 mg/dL (70-105); Osmolality,Calculated 283 (280-300); Potassium 4.2 mEq/L (3.5-5.1); Sodium 134 mEq/L (136-145); Total Protein 5.7 g/dL (6.4-8.9); eGFR For Non-African Americans 60 (> 60)
[2018-01-19 09:16] LABS: Basophils % 0.1 %; Eosinophils % 0.1 %; Hematocrit 30.4 % (35.3-44.9); Hemoglobin 9.6 g/dL (11.5-15.4); Immature Granulocytes % 0.7 % (0-4); Lymphocytes # 1.1 K/mcL (0.6-4.6); Lymphocytes % 7.5 %; Mean Corpuscular HGB Conc 31.6 g/dL (31.6-35.5); Mean Corpuscular Hemoglobin 29.1 pg (28.0-33.3); Mean Corpuscular Volume 92.1 fL (83.0-100.0); Mean Platelet Volume 11.8 fL (9.4-12.4); Monocytes % 6.6 %; Platelet Count 105 K/mcL (140-400); Red Cell Distribution Width 14.6 % (11.5-14.5)
--- NOTE | 2018-01-19 10:43 | Orthopedics Progress Note ---
Date of Encounter: 01/19/18 Time of Encounter: 07:57 Subjective Interval history: Patient was seen this morning doing well without complaints. Afebrile vital signs stable. Operative extremity: Neurovascularly intact Dressing clean dry and intact Calves nontender Assessment and plan: Continue with postoperative care hb 9.5 Objective Vital signs: Vital Signs Temp Pulse Resp BP Pulse Ox 01/19/18 06:49 98.1 F 83 16 118/56 95 01/19/18 03:14 98.1 F 75 18 113/53 93 01/18/18 22:53 98.4 F 75 16 116/60 93 01/18/18 18:27 98.1 F 72 16 106/64 98 01/18/18 18:10 98.1 F 66 14 116/64 92 01/18/18 16:55 98.2 F 67 15 117/49 92 01/18/18 16:35 97.6 F 65 14 105/62 95 01/18/18 16:03 97.6 F 68 14 101/42 93 01/18/18 15:38 97.6 F 72 16 111/56 96 01/18/18 15:28 72 16 117/62 96 01/18/18 15:18 74 16 115/50 99 01/18/18 15:08 97.1 F L 82 16 144/63 95 01/18/18 13:40 68 13 123/48 97 01/18/18 13:23 68 15 114/61 96 01/18/18 10:00 98.4 F 68 16 104/56 96 Intake and Output 01/18/18 01/18/18 01/19/18 15:59 23:59 07:59 Intake Total 580 / 580 100 / 100 Output Total 500 / 500 0 / 0 200 / 200 Balance -470 / -470 580 / 580 -100 / -100 Intake: IV Fluids 100 / 100 Ancef 2,000 MG In 0.9 % Sodium 100 / 100 Chloride 100 ML @ 200 mls/hr IVPB Q8H [facility] Rx#:[id number] Oral 30 / 30 480 / 480 100 / 100 Output: Urine 450 / 450 0 / 0 200 / 200 Estimated Blood Loss 50 / 50 Other: Meal jello Percent of Meal Consumed 100% # Voids 1 1 # Urine Diapers 1 1 Weight 52.6 kg Patient Weight 01/19/18 23:59 Weight 52.6 kg - Labs CBC & BMP: 01/19/18 03:03 01/17/18 20:30 Labs: Abnormal lab results RBC 3.78 M/mcL (3.82-4.97) L 01/18/18 05:55 Hgb 9.5 g/dL (11.5-15.4) L D 01/19/18 03:03 Hct 29.7 % (35.3-44.9) L 01/19/18 03:03 Plt Count 103 K/mcL (140-400) L 01/18/18 05:55 APTT 43.9 Seconds (26.0-36.0) H 01/18/18 05:55 Glucose 111 mg/dL (70-105) H 01/17/18 20:30 Urine Clarity Cloudy (Clear) A 01/19/18 01:10 Urine Blood Trace (Negative) H 01/19/18 01:10 Urine Nitrite Positive (Negative) A 01/19/18 01:10 Ur Leukocyte Esterase Moderate (Negative) H 01/19/18 01:10 Urine Microscopic WBC 5-15 per hpf (0-3) H 01/19/18 01:10 Ur Squamous Epith Cells Moderate per lpf (None-Few) H 01/19/18 01:10 Urine Bacteria Moderate per hpf (None-Few) H 01/19/18 01:10 Ur Culture Indicated? YES (NO) A 01/19/18 01:10 Consult Discharge Plan - Plan Referrals: NONE,PCP [Primary Care Provider] -
--- NOTE | 2018-01-19 10:44 | Internal Med Progress Note ---
<BibianavioletaCarol N - Last Filed: 01/19/18 13:04> Hospitalist Progress Note - Encounter Date of Encounter: 01/19/18 Time of Encounter: 08:06 - Subjective Interval History: Brittany Nunez is an 87 year old woman with a history of coronary artery disease status post stent, hypertension and gastroesophageal surgery. She presented to the ED on 01/17/18 after falling while taking out her garbage yesterday stating that she tripped over with the garbage can. She denies hitting her head or losing consciousness. She suffered trauma to her left shoulder and to her nose was brought in for evaluation by her daughter. She denies feeling dizziness prior to this or having blurry vision. Imaging studies revealed a nasal bone fracture and a left proximal humerus displaced fracture. Pt is POD #1 L reverse shoulder replacement. This morning, pt complains of 10/10 left shoulder pain. Pt states she has some nausea, but has not vomited. Pt denies lightheadness, dizziness, abdominal pain, SOB, chest pain, or dysuria. Pt has been ambulating to the chair with assistance. Pt states she feels "unbalanced" when standing. - Exam Vitals: Temp Pulse Resp BP Pulse Ox 98.1 F 83 16 118/56 95 01/19/18 06:49 01/19/18 06:49 01/19/18 06:49 01/19/18 06:49 01/19/18 06:49 Exam: Vitals: Reviewed General: Well-developed, NAD, pleasant elderly woman HEENT: atruamtric and normocephalic Chest: Normal thoracic expansion. Normal breath sounds. Clear to auscultation. No wheezing or rhonchi Heart: Normal S1 & S2; RRR. No murmurs. Abdomen: Non-distended, soft and non-tender to palpation, normal bowel sounds Extremities: No clubbing, cyanosis or lower extremity edema. Left arm in a sling. Contusion on left knee. - Assessment and Plan (1) Recurrent falls Current Visit: No Status: Chronic Assessment and Plan: She presented to the ED on 01/17/18 after - fell tripping over garbage can, no LOC - she hit face and had left proximal humerus displaced fx POD #1 s/p L reverse shoulder replacement -tolerated surgery well Plan: - PT/OT consulted - orthopedics following - pt agreeable to go to [facility] facility - pain control with acetaminophen, toradol, and oxycodone (2) Humerus fracture Current Visit: Yes Status: Acute Assessment and Plan: Pt presented on 01/17/18 after a fall and was found to have a proximal left hu merus fracture on shoulder x-ray -Secondary to traumatic fall when she tripped over a garbage can POD #1 L reverse shoulder replacement. -tolerated surgery well Plan: -Hemoglobin this morning 9.5 (decreased from 11.0 yesterday) most likely due to post-op bleeding -H&H daily -provide pain control with acetaminophen, toradol, and oxycodone -PT/OT consulted (3) Nasal bone fracture Current Visit: Yes Status: Acute Assessment and Plan: CT scan showed nondisplaced nasal bone fracture -ENT consulted and did not recommend any surgical intervention as it will heal on it's own Plan: -pain control with acetaminophen, toradol, and oxycodone (4) Coronary artery disease Current Visit: Yes Status: Chronic Assessment and Plan: -has hx of CAD -on Simvastatin, amlodipine, heparin, lisinopril, metoprolol (5) Essential hypertension Current Visit: Yes Status: Chronic Assessment and Plan: BP 120/54 -controlled -Continue Metoprolol, Amlodipine, and Lisinopril (6) GERD (gastroesophageal reflux disease) Current Visit: Yes Status: Acute Assessment and Plan: Chronic -On omeprazole -Continue home dose (7) Anxiety Current Visit: Yes Status: Acute Assessment and Plan: -On Zoloft -Continue home dose (8) DVT prophylaxis Current Visit: Yes Status: Acute Assessment and Plan: resume heparin SQ DVT Prophylaxis: -resume SQ heparin - Time Spent with Patient Total time spent is greater than 50% in coordination of care (as documented) at patient's floor/unit and/or counseling patient: Internal Medicine: Result - Labs CBC & Chem 7: 01/19/18 10:47 01/19/18 07:46 Labs: Short CBC 01/19/18 Range/Units 03:03 Hgb 9.5 L D (11.5-15.4) g/dL Hct 29.7 L (35.3-44.9) % Urine 01/19/18 Range/Units 01:10 Urine Color Yellow (Yellow) Urine Clarity Cloudy A (Clear) Urine pH 6.0 (5.0-8.0) pH Units Ur Specific [place] 1.012 (1.010-1.025) Urine Protein Negative (Neg-Trace) mg/dL Urine Glucose (UA) Normal (Normal) mg/dL - ABG Interpretation ABG results: PT/INR, D-dimer PT 11.8 Seconds (9.4-12.1) 01/18/18 05:55 - Impressions Impressions Shoulder X-Ray 01/18/18 13:52 IMPRESSION: 1. Status post shoulder arthroplasty. No immediate complication. 2. Redemonstration of patient's known humeral neck fracture. D/ / 01/18/2018 15:49:41 Luci Mujica MD / marisol Interpreting Provider: Luci Mujica MD Consult Discharge Plan - Plan Referrals: NONE,PCP [Primary Care Provider] - <Kiarra Monet - Last Filed: 01/19/18 16:44> Hospitalist Progress Note - Exam Vitals: Temp Pulse Resp BP Pulse Ox 98 F 76 18 118/64 95 01/19/18 14:51 01/19/18 14:51 01/19/18 14:51 01/19/18 14:51 01/19/18 14:51 - Assessment and Plan (1) Recurrent falls Current Visit: No Status: Chronic (2) Coronary artery disease Current Visit: Yes Status: Chronic (3) Essential hypertension Current Visit: Yes Status: Chronic (4) Humerus fracture Current Visit: Yes Status: Acute (5) Nasal bone fracture Current Visit: Yes Status: Acute (6) DVT prophylaxis Current Visit: Yes Status: Acute (7) Leukocytosis Current Visit: Yes Status: Acute - Time Spent with Patient Total time spent is greater than 50% in coordination of care (as documented) at patient's floor/unit and/or counseling patient: Internal Medicine: Result - Labs CBC & Chem 7: 01/19/18 10:47 01/19/18 07:46 Labs: Short CBC 01/19/18 01/19/18 01/19/18 Range/Units 03:03 09:00 10:47 WBC 15.2 H (4.3-11.1) K/mcL Hgb 9.5 L D 9.6 L 9.3 L (11.5-15.4) g/dL Hct 29.7 L 30.4 L 29.8 L (35.3-44.9) % Plt Count 105 L (140-400) K/mcL Neutrophils # 13.0 H (1.6-8.9) K/mcL BMP 01/19/18 07:46 Sodium 134 L Potassium 4.2 Chloride 104 Carbon Dioxide 26 BUN 22 Creatinine 0.89 Glucose 121 H Calcium 9.1 Liver Function 01/19/18 Range/Units 07:46 Total Bilirubin 0.3 (0.3-1.0) mg/dL AST 155 H (13-39) Units/L ALT 213 H (7-52) Units/L Alkaline Phosphatase 100 (34-104) Units/L Albumin 3.3 L (3.5-5.7) g/dL Urine 01/19/18 Range/Units 01:10 Urine Color Yellow (Yellow) Urine Clarity Cloudy A (Clear) Urine pH 6.0 (5.0-8.0) pH Units Ur Specific [place] 1.012 (1.010-1.025) Urine Protein Negative (Neg-Trace) mg/dL Urine Glucose (UA) Normal (Normal) mg/dL - ABG Interpretation ABG results: PT/INR, D-dimer PT 11.8 Seconds (9.4-12.1) 01/18/18 05:55 - Attending Attestation I examined this patient and my medical decision-making was reviewed with the Medical Student and Resident Physician. I agree with the documented findings, disposition and treatment plan as described except to the extent set forth below. 87-year-old woman with history of CAD, HTN and multiple falls in the past presented after a mechanical fall while taking out her garbage. she ended up falling on her shoulder. Patient was stable on arrival to ED. Shoulder x-ray showed comminuted displaced proximal left humeral fracture. CT of head/face showed a nasal bone fracture. She is POD #1 status post left reverse total shoulder replacement. Pain is 10/10 this morning, pain medication only helping a little. VS reviewed; unremarkable Physical exam: Gen: NAD, left upper extremity in sling, sensation in hand is preserved, no edema, radial pulses both upper extremities normal. A/P 1 - Humerus fracture - POD #1 s/p left reverse total shoulder replacement. 2 - Coronary artery disease 3- Hypertension 4 - Recurring falls 5 - Leukocytosis - likely stress reaction 6 - DVT prophylaxis - Orthopedics following - Resume home medications when able. - PT/OT <Carol Lilly - Last Filed: 01/19/18 13:04> (2) Humerus fracture Qualifiers: Encounter type: initial encounter Humerus Location: proximal Fracture type: closed Fracture morphology: unspecified fracture morphology Laterality: left Qualified Code(s): S42.A - Unspecified fracture of upper end of left humerus, initial encounter for closed fracture (3) Nasal bone fracture Qualifiers: Encounter type: initial encounter Fracture type: closed Qualified Code(s): S02.2XXA - Fracture of nasal bones, initial encounter for closed fracture (4) Coronary artery disease Qualifiers: Coronary Disease-Associated Artery/Lesion type: [place] artery [place] vs. transplanted heart: [place] heart Associated angina: without angina Qualified Code(s): I25.10 - Atherosclerotic heart disease of [place] coronary artery without angina pectoris <Kiarra Monet - Last Filed: 01/19/18 16:44> (2) Coronary artery disease Qualifiers: Coronary Disease-Associated Artery/Lesion type: [place] artery [place] vs. transplanted heart: [place] heart Associated angina: without angina Qualified Code(s): I25.10 - Atherosclerotic heart disease of [place] coronary artery without angina pectoris (4) Humerus fracture Qualifiers: Encounter type: initial encounter Humerus Location: proximal Fracture type: closed Fracture morphology: unspecified fracture morphology Laterality: left Qualified Code(s): S42.202A - Unspecified fracture of upper end of left humerus, initial encounter for closed fracture (5) Nasal bone fracture Qualifiers: Encounter type: initial encounter Fracture type: closed Qualified Code(s): S02.2XXA - Fracture of nasal bones, initial encounter for closed fracture (7) Leukocytosis Qualifiers: Leukocytosis type: unspecified Qualified Code(s): D72.829 - Elevated white blood cell count, unspecified
[2018-01-19 11:01] LABS: Hematocrit 29.8 % (35.3-44.9); Hemoglobin 9.3 g/dL (11.5-15.4)
--- NOTE | 2018-01-19 18:07 | Event Note ---
Date of Encounter: 01/19/18 Time of Encounter: 13:00 Patient seen and evaluated, doing well. [place] D/C'ed by All family questions were answered.
[2018-01-19] MEDS: Ringers Solution, Lactated 1,000 ML IVC SCH ×3 (20:16→20:19)
[2018-01-19] MEDS: Lisinopril 20 MG TABLET PO SCH (20:18)
[2018-01-20] MEDS: *HR* OxyCODONE Immed Rel 5 MG TABLET PO PRN ×3 (03:39→13:07)
[2018-01-20 05:18] LABS: Hematocrit 28.3 % (35.3-44.9); Hemoglobin 9.2 g/dL (11.5-15.4)
[2018-01-20] MEDS: *HR* Heparin 5,000 UNIT/ML VIAL SQ SCH ×2 (05:38→13:06)
--- NOTE | 2018-01-20 06:33 | Orthopedics Progress Note ---
Date of Encounter: 01/20/18 Time of Encounter: 06:32 Subjective Interval history: Patient was seen this morning doing well without complaints. Afebrile vital signs stable. Operative extremity: Neurovascularly intact Dressing clean dry and intact [place] nontender Assessment and plan: Continue with postoperative care hb 9.2 stable for discharge Objective Vital signs: Vital Signs Temp Pulse Resp BP Pulse Ox 01/20/18 03:53 98.9 F 76 17 155/78 93 01/19/18 22:52 99.6 F 79 16 151/71 92 01/19/18 18:24 98.8 F 74 16 133/81 94 01/19/18 14:51 98 F 76 18 118/64 95 01/19/18 14:44 98.3 F 67 18 115/67 94 01/19/18 09:57 98.5 F 73 16 123/58 96 01/19/18 09:00 98.4 F 66 16 120/54 92 01/19/18 06:49 98.1 F 83 16 118/56 95 Intake and Output 01/19/18 01/19/18 01/20/18 15:59 23:59 07:59 Intake Total 100 / 100 2120 / 2120 200 / 200 Output Total 300 / 300 Balance 100 / 100 1820 / 1820 200 / 200 Intake: IV Fluids 100 / 100 2120 / 2120 D5% & Lact. Ringers 1000 Ml Bag 1000 / 1000 1,000 ML @ 75 mls/hr IVC . [id number] DIANNA Rx#:[id number] Ofirmev 1,000 mg/100 ml 1,000 100 / 100 mg In 100 ml @ 400 mls/hr IVPB Q6HR PRN Rx#:[id number] Oral 200 / 200 Output: Urine 300 / 300 Other: # Voids 1 - Labs CBC & BMP: 01/20/18 04:16 01/19/18 07:46 Labs: Abnormal lab results WBC 15.2 K/mcL (4.3-11.1) H 01/19/18 09:00 RBC 3.30 M/mcL (3.82-4.97) L 01/19/18 09:00 Hgb 9.2 g/dL (11.5-15.4) L 01/20/18 04:16 Hct 28.3 % (35.3-44.9) L 01/20/18 04:16 RDW 14.6 % (11.5-14.5) H 01/19/18 09:00 Plt Count 105 K/mcL (140-400) L 01/19/18 09:00 Neutrophils # 13.0 K/mcL (1.6-8.9) H 01/19/18 09:00 APTT 43.9 Seconds (26.0-36.0) H 01/18/18 05:55 Sodium 134 mEq/L (136-145) L 01/19/18 07:46 Glucose 121 mg/dL (70-105) H 01/19/18 07:46 AST 155 Units/L (13-39) H 01/19/18 07:46 ALT 213 Units/L (7-52) H 01/19/18 07:46 Serum Total Protein 5.7 g/dL (6.4-8.9) L 01/19/18 07:46 Albumin 3.3 g/dL (3.5-5.7) L 01/19/18 07:46 Urine Clarity Cloudy (Clear) A 01/19/18 01:10 Urine Blood Trace (Negative) H 01/19/18 01:10 Urine Nitrite Positive (Negative) A 01/19/18 01:10 Ur Leukocyte Esterase Moderate (Negative) H 01/19/18 01:10 Urine Microscopic WBC 5-15 per hpf (0-3) H 01/19/18 01:10 Ur Squamous Epith Cells Moderate per lpf (None-Few) H 01/19/18 01:10 Urine Bacteria Moderate per hpf (None-Few) H 01/19/18 01:10 Ur Culture Indicated? YES (NO) A 01/19/18 01:10 Consult Discharge Plan - Plan Referrals: NONE,PCP [Primary Care Provider] -
[2018-01-20] MEDS: amLODIPine 5 MG TABLET PO SCH (08:10)
[2018-01-20] MEDS: Metoprolol XL (24 HR) Succ 50 MG TAB.ER.24H PO SCH (08:11)
[2018-01-20] MEDS: Lisinopril 20 MG TABLET PO SCH (08:11)
[2018-01-20] MEDS: Celecoxib 200 MG CAPSULE PO SCH (08:11)
[2018-01-20] MEDS: Tolterodine LA (24 HR) 4 MG CAP.ER.24H PO SCH (08:11)
--- NOTE | 2018-01-20 09:39 | Discharge Summary ---
<Jonnathan John S - Last Filed: 01/20/18 11:45> - NOTES TO OUTPATIENT PROVIDER Notes to Outpatient Provider: Follow up on pain control. Orders not resulted at time of discharge: Pending orders 01/17/18 17:54 CT 3D reconstruction [CT] Stat 01/18/18 13:00 US anesthesia pain block [US] Routine Date of Encounter: 01/20/18 Time of Encounter: 09:36 - Discharge Diagnosis (1) Humerus fracture Priority: Primary Status: Acute Qualifiers: Encounter type: initial encounter Humerus Location: proximal Fracture type: closed Fracture morphology: unspecified fracture morphology Laterality: left Qualified Code(s): S42.202A - Unspecified fracture of upper end of left humerus, initial encounter for closed fracture (2) Recurrent falls Priority: Secondary Status: Chronic (3) Coronary artery disease Priority: Secondary Status: Chronic Qualifiers: Coronary Disease-Associated Artery/Lesion type: [place] artery [place] vs. transplanted heart: [place] heart Associated angina: without angina Qualified Code(s): I25.10 - Atherosclerotic heart disease of [place] coronary artery without angina pectoris (4) Essential hypertension Priority: Secondary Status: Chronic (5) Nasal bone fracture Priority: Secondary Status: Acute Qualifiers: Encounter type: initial encounter Fracture type: closed Qualified Code(s): S02.2XXA - Fracture of nasal bones, initial encounter for closed fracture (6) DVT prophylaxis Priority: Secondary Status: Acute (7) Leukocytosis Priority: Secondary Status: Acute Qualifiers: Leukocytosis type: unspecified Qualified Code(s): D72.829 - Elevated white blood cell count, unspecified Hospital course: Ms. Nunez is a 87 year old female 87 year old woman with a history of coronary artery disease status post stent, hypertension and gastroesophageal surgery. She presented to the ED on 01/17/18 after falling while taking out her garbage yesterday stating that she tripped over with the garbage can. She denies hitting her head or losing consciousness. She suffered trauma to her left shoulder and to her nose was brought in for evaluation by her daughter. She denies feeling dizziness prior to this or having blurry vision. Imaging studies revealed a nasal bone fracture and a left proximal humerus displaced fracture. - pt was seen by ENT and they said she wouldn't need sx, that nose would heal on its own Pt is POD #2 L reverse shoulder replacement. This morning, pt states she is still sore but pain is better tolerated. Pt denies chest pain, SOB, abd pain, dysuria. Pt has been ambulating to the chair with assistance. Pt states she feels "unbalanced" when standing. Pt is agreeable to go to [facility] for rehab. She is stable for d/c - will d/c 5mg q6hr for 2 days Discharge discussed with: patient Time spent discussing smoking cessation with patient: 3 to 10 minutes - Time Spent with Patient Total time spent providing and/or coordinating discharge services: Less than 30 minutes - Discharge Medications Home Medications: Alendronate Sodium [Fosamax] 70 mg PO QWEEK 08/29/17 [History] Celecoxib [Celebrex] 200 mg PO DAILY 08/29/17 [History] Clopidogrel [Plavix] 75 mg PO DAILY 08/29/17 [History] Esomeprazole Magnesium [Nexium] 40 mg PO DAILY 08/29/17 [History] Lisinopril [Zestril] 40 mg PO DAILY 08/29/17 [History] Metoclopramide HCl 5 mg PO BID 08/29/17 [History] Metoprolol Succinate [Toprol Xl] 50 mg PO DAILY 08/29/17 [History] Sertraline [Zoloft] 100 mg PO DAILY 08/29/17 [History] Simvastatin [Zocor] 20 mg PO HS 08/29/17 [History] Sucralfate [Carafate] 20 ml PO BID 08/29/17 [History] Tolterodine LA (24 HR) [Detrol LA] 4 mg PO DAILY 08/29/17 [History] amLODIPine [Norvasc] 5 mg PO DAILY 08/29/17 [History] Meclizine [Antivert] 12.5 mg PO TID PRN #30 tablet 09/01/17 [Rx] Allergies/Adverse Reactions: Allergy/AdvReac Type Severity Reaction Status Date / Time pregabalin [From Lyrica] AdvReac See Verified 08/29/17 20:42 Comments Date of admission: 01/17/18 22:50 Primary care physician: PCP NONE Consults: 01/17/18 19:35 Consult to Orthopedic Surgery [CONS] Stat Consulting Provider: Ghany,Eduar C Reason for Consult: fall, left humeral fracture Time Notified: 19:36 Call Completed: No 01/17/18 20:10 Consult to ENT [CONS] Stat Consulting Provider: OSCAR Contreras Reason for Consult: nasal fracture Time Notified: 20:11 Call Completed: No 01/18/18 13:17 Consult to Occupational Therapy [CONS] Routine Comment: Evaluate, develop and implement POC Reason for Consult: proximal humerus fx Does patient have active BEDREST order?: No Is patient medically & hemodynamically stable?: Yes Patient assessed for mobility or mobilized this visit?: No Consult to Physical Therapy [CONS] Routine Comment: Evaluate, develop and implement POC Reason for Consult: humerus fx Does patient have active BEDREST order?: No Is patient medically & hemodynamically stable?: Yes Patient assessed for mobility or mobilized this visit?: No 01/18/18 15:55 Consult to Occupational Therapy [CONS] Routine Comment: post shoulder surgery Reason for Consult: post shoulder surgery Does patient have active BEDREST order?: No Is patient medically & hemodynamically stable?: Yes Consult to Physical Therapy [CONS] Routine Comment: post shoulder surgery Reason for Consult: post shoulder surgery Does patient have active BEDREST order?: No Is patient medically & hemodynamically stable?: Yes RT Post Op Consult [CONS] Routine Discharging clinician: Jonnathan John Anticipated date of discharge: 01/20/18 - Constitutional Vitals: Temp Pulse Resp BP Pulse Ox 97.4 F L 76 20 135/67 91 01/20/18 07:00 01/20/18 07:00 01/20/18 07:00 01/20/18 07:00 01/20/18 08:23 Exam: General: Well-developed, NAD, pleasant elderly woman HEENT: normocephalic, bruises to nasal area Chest: Normal thoracic expansion. Normal breath sounds. Clear to auscultation. No wheezing or rhonchi Heart: Normal S1 & S2; RRR. No murmurs. Abdomen: Non-distended, soft and non-tender to palpation, normal bowel sounds Extremities: No clubbing, cyanosis or lower extremity edema. Left arm in a sling. Contusion on left knee. - Patient Status Disposition: Transfer SNF Condition: Good Functional capacity at discharge: uses cane/walker Overall status at discharge: patient is progressing back to baseline - Discharge Instructions Instructions: Arm Fracture in Adults (DC), Nasal Fracture (DC), Joint Replacement Surgery (DC) Follow Up With: Olman Gramajo MD [Partnered Physician] - Nelida Brown, JAMIE [Physician Threshing Department Supervisor] - Jonnathan John [Resident] - 02/01/18 Additional Instructions: Discharge Instructions: Total Shoulder Please call [facility] ([phone]), your Primary Care Physician, or report to the Emergency Room if you have any of the following symptoms: Nausea, vomiting, fever greater that 101.5, swelling, chest pain, shortness of breath, increased pain/redness/drainage/odor for your incision site, numbness/tingling, or any other concerning symptoms. ACTIVITY: Always keep your arm in the sling. Do not raise your arm away from your body. Do not use your arm to help with getting in or out of bed. No weight bearing permitted. Only perform those exercises given to you by your therapist. Incentive Spirometer 10 times an hour. MEDICATIONS: Upon discharge resume your home medications. Take all the medications as prescribed. Take a stool softener if taking narcotic pain medications. Stool softeners are only effective if you drink enough fluids. Drink 6-8 glass of water or fluids a day, unless this is not allowed for another health problem. Despite using stool softeners, if you haven't had a bowel movement in 3 days, please switch to a gentle laxative. Gentle laxatives are sold over the counter. You should have a bowel movement within 24 hours, if not call the office. You will be discharged from the hospital with a prescription for pain medication. You are encouraged to decrease the use of narcotic pain medication as tolerated. Should you require a refill, please call the office. [facility] prescribes narcotic pain medication for only 4-6 weeks after surgery. If you require pain medication beyond this time period, you may be referred to your Primary Care Physician or to the Pain Clinic for further evaluation. Plan ahead for refills on pain medication as many narcotics either need to be picked up at the office or mailed. It is best to call 48-72 hours in advance of needing a prescription refill so you don't run out of medication. To help control the post-operative pain, you may take NSAIDs (Aleve,Advil, Motrin, Ibuprofen, Naprosyn) or Tylenol as prescribed on the bottle in addition to the pain medication. WOUND CARE: Leave the dressing on for 7-10 days. You may change the dressing if it becomes saturated greater than 50%. Do not get the dressing wet at anytime. Wash your hands with antibacterial soap, rinse and dry prior to any wound care. If you have emperatriz the visiting nurse or rehab facility can remove the stapes 10-14 days after surgery and place steri-strips across the wound. Leave the steri-strips in place until they fall off on their own. You may let water from the shower run on top of the steri-strips. If you do not have a visiting nurse or rehab facility, you will need to return to the office at 10-14 days for the emperatriz to be removed. If you have itching or redness around the dressing call the office. FOLLOW-UP: Please follow up with your surgeon in the orthopedic clinic, as scheduled - Diet and Activity Activity: increase activity as tolerated Diet: low fat, low cholesterol, low salt diet <Kiarra Monet - Last Filed: 01/22/18 20:59> Orders not resulted at time of discharge: Pending orders 01/17/18 17:54 CT 3D reconstruction [CT] Stat 01/18/18 13:00 US anesthesia pain block [US] Routine - Discharge Diagnosis (1) Recurrent falls Status: Chronic (2) Coronary artery disease Status: Chronic Qualifiers: Coronary Disease-Associated Artery/Lesion type: [place] artery [place] vs. transplanted heart: [place] heart Associated angina: without angina Qualified Code(s): I25.10 - Atherosclerotic heart disease of [place] coronary artery without angina pectoris (3) Essential hypertension Status: Chronic (4) Humerus fracture Status: Acute Qualifiers: Encounter type: initial encounter Humerus Location: proximal Fracture type: closed Fracture morphology: unspecified fracture morphology Laterality: left Qualified Code(s): S42.202A - Unspecified fracture of upper end of left humerus, initial encounter for closed fracture (5) Nasal bone fracture Status: Acute Qualifiers: Encounter type: initial encounter Fracture type: closed Qualified Code(s): S02.2XXA - Fracture of nasal bones, initial encounter for closed fracture (6) DVT prophylaxis Status: Acute (7) Leukocytosis Status: Acute Qualifiers: Leukocytosis type: unspecified Qualified Code(s): D72.829 - Elevated white blood cell count, unspecified Hospital course: Ms. Nunez is a 87 year old female - Time Spent with Patient Total time spent providing and/or coordinating discharge services: Date of admission: 01/17/18 22:50 Primary care physician: PCP NONE Consults: 01/17/18 19:35 Consult to Orthopedic Surgery [CONS] Stat Consulting Provider: Eduar Burger Reason for Consult: fall, left humeral fracture Time Notified: 19:36 Call Completed: No 01/17/18 20:10 Consult to ENT [CONS] Stat Consulting Provider: [facility] Reason for Consult: nasal fracture Time Notified: 20:11 Call Completed: No 01/18/18 13:17 Consult to Occupational Therapy [CONS] Routine Comment: Evaluate, develop and implement POC Reason for Consult: proximal humerus fx Does patient have active BEDREST order?: No Is patient medically & hemodynamically stable?: Yes Patient assessed for mobility or mobilized this visit?: No Consult to Physical Therapy [CONS] Routine Comment: Evaluate, develop and implement POC Reason for Consult: humerus fx Does patient have active BEDREST order?: No Is patient medically & hemodynamically stable?: Yes Patient assessed for mobility or mobilized this visit?: No 01/18/18 15:55 Consult to Occupational Therapy [CONS] Routine Comment: post shoulder surgery Reason for Consult: post shoulder surgery Does patient have active BEDREST order?: No Is patient medically & hemodynamically stable?: Yes Consult to Physical Therapy [CONS] Routine Comment: post shoulder surgery Reason for Consult: post shoulder surgery Does patient have active BEDREST order?: No Is patient medically & hemodynamically stable?: Yes RT Post Op Consult [CONS] Routine - Constitutional Vitals: Temp Pulse Resp BP Pulse Ox 97.9 F 71 14 142/67 89 01/20/18 10:59 01/20/18 10:59 01/20/18 10:59 01/20/18 13:05 01/20/18 10:59 - Attending Attestation I examined this patient and my medical decision-making was reviewed with the Resident Physician. I agree with the documented findings, disposition and treatment plan as described except to the extent set forth below.
--- NOTE | 2018-01-20 09:43 | Physician Discharge Referral ---
ExtendedCare Referral Info Transfer To: [facility] Provider in Charge after Transfer: PCP Institutional Level of Care: Skilled - Diagnosis (1) Humerus fracture Priority: Primary Status: Acute (2) Recurrent falls Priority: Secondary Status: Chronic (3) Coronary artery disease Priority: Secondary Status: Chronic (4) Essential hypertension Priority: Secondary Status: Chronic (5) Nasal bone fracture Priority: Secondary Status: Acute (6) DVT prophylaxis Priority: Secondary Status: Acute (7) Leukocytosis Priority: Secondary Status: Acute Prognosis: Good Aware of Diagnosis: Patient Aware of Prognosis: Patient - Transfer Medications Home Medications: Alendronate Sodium [Fosamax] 70 mg PO QWEEK 08/29/17 [History] Celecoxib [Celebrex] 200 mg PO DAILY 08/29/17 [History] Clopidogrel [Plavix] 75 mg PO DAILY 08/29/17 [History] Esomeprazole Magnesium [Nexium] 40 mg PO DAILY 08/29/17 [History] Lisinopril [Zestril] 40 mg PO DAILY 08/29/17 [History] Metoclopramide HCl 5 mg PO BID 08/29/17 [History] Metoprolol Succinate [Toprol Xl] 50 mg PO DAILY 08/29/17 [History] Sertraline [Zoloft] 100 mg PO DAILY 08/29/17 [History] Simvastatin [Zocor] 20 mg PO HS 08/29/17 [History] Sucralfate [Carafate] 20 ml PO BID 08/29/17 [History] Tolterodine LA (24 HR) [Detrol LA] 4 mg PO DAILY 08/29/17 [History] amLODIPine [Norvasc] 5 mg PO DAILY 08/29/17 [History] Meclizine [Antivert] 12.5 mg PO TID PRN #30 tablet 09/01/17 [Rx] Allergies/Adverse Reactions: Allergy/AdvReac Type Severity Reaction Status Date / Time pregabalin [From Lyrica] AdvReac See Verified 08/29/17 20:42 Comments - Respiratory Orders None Smoking Cessation: Smoking cessation has been advised. For more information, call the [place] [employer] Quit Line at 4-661-TYSX-NOW. - Advance Directives Code Status: DNR-Arrest/Don't Intubate - Mobility Orders Chair - Rehabiliation Orders Rehab Potential: Fair Rehab Orders: Evaluation for Physical Therapy, Evaluation for Occupational Therapy - Diet Orders Cardiac CERTIFICATION: I certify that the transfer of the above named patient to an Extended Care Facility is necessary for the continuing treatment of the diagnosis listed. The above information is true and accurate reflection of patient's current condition. Confidential - Redisclosure prohibited without a patient's written consent.
[2018-01-20 13:05] VITALS: BP 142/67
--- NOTE | 2018-01-21 21:36 | Electrocardiograph Report ---
[address] [place], [place] [address] Test Date: 2018-01-17 Pat Name: Brittany Nunez Department: EXAM1 Room: [facility] Gender: F Rn Case Manager: : 1930 Requested By: Hugo Chen Order Number: [id number] Reading MD: Brendan Harvey Measurements Intervals [place] Rate: 59 P: 71 AK: 162 QRS: -17 QRSD: 81 T: 22 QT: 449 QTc: 445 Interpretive Statements Sinus rhythm Cannot rule out anteroseptal infarct, age indeterminate Electronically Signed On 01-21-2018 21:35:18 EDT by Brendan Harvey
== END 2018-01-20 13:33 | DRG 483 ==
LOC: 3NENU 17:37 → EMEROOARM 17:37 → SUATTDRO 22:50 → 3NENU 22:57
PROVIDERS: ADMIT Internal Medicine; ATTEND Student in an Organized Health Care Education/Training Program